=== PATIENT | female | born 1955 | race Caucasian/White ===

== ENCOUNTER 2017-02-05 06:52 | Emergency (ER) | payer SELFPAY ==
[2017-02-05] MEDS ORDERED: ASPIRIN 81 MG TABLET, CHEWABLE PO ONE (07:57)
[2017-02-05] MEDS ORDERED: IPRATROPIUM/ALBUTEROL 0.5-2.5 MG/3 ML AMPUL NEB ONE (07:57)
[2017-02-05] MEDS ORDERED: NORMAL SALINE 1000 ML 1,000 ML IV ONE (07:58)
--- NOTE | 2017-02-05 07:59 | ER Document Report ---
ED General - General Chief Complaint: Cough Stated Complaint: HURT RIGHT SIDE OF CHEST TRAVEL OUTSIDE OF THE [place] IN LAST 30 DAYS: No - HPI Patient complains to provider of: right-sided chest pain Notes: Patient coming in with a chronic cough why sputum production over the last 1-2 weeks right-sided chest pain at the right breast area ongoing for the last 24 hours. Patient states pain is reproducible worse when she takes a breath and also when she moves around. Patient does currently smoke approximately half- pack a day. Patient states no other past medical problems patient has had a hysterectomy no recent travel no recent antibiotics. - Related Data Allergies/Adverse Reactions: codeine Allergy (Verified 02/05/17 07:02) Past Medical History - Social History Smoking Status: Unknown if Ever Smoked Family History: CAD - Father had massive ND at age 55 Patient has suicidal ideation: No Patient has homicidal ideation: No - Past Medical History Cardiac Medical History: Reports: Hx Hypertension Renal/ Medical History: Denies: Hx Peritoneal Dialysis GI Medical History: Reports: Hx Gastroesophageal Reflux Disease Past Surgical History: Reports: Hx Hysterectomy Review of Systems - Review of Systems Constitutional: No symptoms reported EENT: No symptoms reported Cardiovascular: No symptoms reported Respiratory: Cough, Short of breath, Wheezing Gastrointestinal: No symptoms reported Genitourinary: No symptoms reported Female Genitourinary: No symptoms reported Musculoskeletal: No symptoms reported Skin: No symptoms reported Hematologic/Lymphatic: No symptoms reported Neurological/Psychological: No symptoms reported -: Yes All other systems reviewed and negative Physical Exam - Vital signs Vitals: Temp Pulse Resp BP Pulse Ox 97.4 F 107 H 18 114/69 97 02/05/17 06:54 02/05/17 06:54 02/05/17 06:54 02/05/17 06:54 02/05/17 06:54 Interpretation: Normal - General General appearance: Appears well, Alert - HEENT Head: Normocephalic, Atraumatic Eyes: Normal Pupils: PERRL - Respiratory Respiratory status: No respiratory distress Chest status: Nontender Breath sounds: Wheezing Chest palpation: Normal - Cardiovascular Rhythm: Regular Heart sounds: Normal auscultation Murmur: No - Abdominal Inspection: Normal Distension: No distension Bowel sounds: Normal Tenderness: Nontender Organomegaly: No organomegaly - Back Back: Normal, Nontender - Extremities General upper extremity: Normal inspection, Nontender, Normal color, Normal ROM , Normal temperature General lower extremity: Normal inspection, Nontender, Normal color, Normal ROM , Normal temperature, Normal weight bearing. No: Mayur's sign - Neurological Neuro grossly intact: Yes Cognition: Normal Orientation: AAOx4 [place] Coma Scale Eye Opening: Spontaneous [place] Coma Scale Verbal: Oriented [place] Coma Scale Motor: Obeys Commands [place] Coma Scale Total: 15 Speech: Normal Motor strength normal: LUE, RUE, LLE, RLE Sensory: Normal - Psychological Associated symptoms: Normal affect, Normal mood - Skin Skin Temperature: Warm Skin Moisture: Dry Skin Color: Normal Course - Re-evaluation Re-evalutation: 02/05/17 14:37 Chest x-ray showing mass possible postobstructive air space disease. Patient was given a dose of Levaquin. Urinalysis did come back showing urinary tract infection patient was having dysuria. Levaquin will cover urine. CTA was performed of the chest showing Pancoast tumor right upper lobe more likely etiology for patient's chest pain. Patient case was discussed with Dr. Storey agrees patient can follow-up as outpatient as that she was not requiring any oxygen no signs of hypoxia patient agrees follow-up as outpatient. Patient has a appointment scheduled for Wednesday 11:00. - Vital Signs Vital signs: Temp Pulse Resp BP Pulse Ox 98.7 F 107 H 22 H 104/72 96 02/05/17 08:02 02/05/17 06:54 02/05/17 11:01 02/05/17 11:00 02/05/17 11:01 - Laboratory Result Diagrams: 02/05/17 08:10 02/05/17 08:10 Laboratory results interpreted by me: 02/05/17 02/05/17 02/05/17 08:10 08:10 08:10 WBC 13.6 H Hgb 10.7 L Hct 32.8 L MCH 26.2 L RDW 15.0 H Plt Count 495 H Seg Neutrophils % 83.1 H Lymphocytes % 9.7 L Absolute Neutrophils 11.3 H D-Dimer 1.70 H Glucose 117 H Albumin 3.4 L Urine Protein Ur Leukocyte Esterase 02/05/17 09:15 WBC Hgb Hct MCH RDW Plt Count Seg Neutrophils % Lymphocytes % Absolute Neutrophils D-Dimer Glucose Albumin Urine Protein 30 H Ur Leukocyte Esterase MODERATE H Discharge - Discharge Clinical Impression: Lung mass UTI (urinary tract infection) Qualifiers: Urinary tract infection type: acute cystitis Hematuria presence: without hematuria Qualified Code(s): N30.00 - Acute cystitis without hematuria Condition: Good Disposition: HOME, SELF-CARE Instructions: Urinary Tract Infection ([facility]), Trimethoprim-Sulfa ([facility]), Growth or Mass, Pending Workup ([facility]), Oral Narcotic Medication ([facility]) Additional Instructions: Please follow-up Wednesday at [address] Jonathan Storey's office Take antibiotics as prescribed. Take Tylenol and Motrin for pain Use inhaler 2 puffs every 4 hours as needed for shortness of breath. Prescriptions: Hydrocodone Bit/Acetaminophen [Hydrocodon-Acetaminophen 5-325] 1 each PO Q6 #20 tablet Sulfamethoxazole/Trimethoprim [Bactrim 400-80 mg Tablet] 1 each PO BID #20 tablet Forms: Smoking Cessation Education, Return to Work
[2017-02-05 08:21] LABS: ABSOLUTE BASOPHILS # (AUTO) 0.1 10^3/uL (0.0-0.2); ABSOLUTE EOSINOPHILS # (AUTO) 0.1 10^3/uL (0.0-0.6); ABSOLUTE LYMPHOCYTES (AUTO) 1.3 10^3/uL (0.5-4.7); ABSOLUTE MONOCYTES (AUTO) 0.9 10^3/uL (0.1-1.4); ABSOLUTE NEUT (AUTO) 11.3 10^3/uL (1.7-8.2); BASOPHILS % (AUTO) 0.5 % (0-2); EOSINOPHILS % (AUTO) 0.4 % (0-6); HEMATOCRIT 32.8 % (36.0-47.0); HEMOGLOBIN 10.7 g/dL (12.0-15.5); HGB HCT DIFFERENCE -0.7; LYMPHOCYTES % (AUTO) 9.7 % (13-45); MEAN CORPUSCULAR HEMOGLOBIN 26.2 pg (27.0-33.4); MEAN CORPUSCULAR HGB CONC 32.7 g/dL (32.0-36.0); MEAN CORPUSCULAR VOLUME 80 fl (80-97); MONOCYTES % (AUTO) 6.3 % (3-13); SEGMENTED NEUTROPHILS % (AUTO) 83.1 % (42-78); WHITE BLOOD COUNT 13.6 10^3/uL (4.0-10.5)
[2017-02-05 08:40] LABS: ALANINE AMINOTRANSFERASE 19 U/L (9-52); ALBUMIN 3.4 g/dL (3.5-5.0); ALKALINE PHOSPHATASE 107 U/L (38-126); ANION GAP 14 (5-19); ASPARTATE AMINO TRANSFERASE 15 U/L (14-36); BILIRUBIN,DIRECT 0.3 mg/dL (0.0-0.4); BILIRUBIN,TOTAL 0.5 mg/dL (0.2-1.3); BLOOD UREA NITROGEN 12 mg/dL (7-20); CALCIUM 9.2 mg/dL (8.4-10.2); CARBON DIOXIDE 24 mmol/L (22-30); CHLORIDE 100 mmol/L (98-107); CREATINE KINASE 34 U/L (30-135); CREATININE RESULT 0.65 mg/dL (0.52-1.25); GLUCOSE 117 mg/dL (75-110); POTASSIUM 4.3 mmol/L (3.6-5.0); SODIUM 137.7 mmol/L (137-145)
[2017-02-05 08:51] LABS: CREATINE KINASE MB < 0.22 ng/mL (<4.55); TROPONIN I < 0.012 ng/mL
[2017-02-05 09:01] LABS: PROTHROMBIN TIME 14.4 SEC (11.4-15.4)
[2017-02-05 09:40] LABS: APPEARANCE,URINE CLOUDY; BILIRUBIN,URINE NEGATIVE (NEGATIVE); GLUCOSE, URINE NEGATIVE (NEGATIVE); KETONES,URINE NEGATIVE (NEGATIVE); LEUKOCYTE ESTERASE,URINE MODERATE (NEGATIVE); NITRITE,URINE NEGATIVE (NEGATIVE); PROTEIN,URINE 30 mg/dL (NEGATIVE); UROBILINOGEN,URINE NEGATIVE mg/dL (<2.0)
[2017-02-05] MEDS ORDERED: LEVOFLOXACIN 750 MG/D5W RTU 150 ML IV ONE (10:12)
[2017-02-05] MEDS ORDERED: LIDOCAINE 5% (700 MG) TRANSDERMAL ADH..PATCH TP ONE (13:25)
[2017-02-05] MEDS ORDERED: ALBUTEROL SULFATE HFA (90 MCG/PUFF) 8 GM MDI (1 MDI/ER DISP) IH ONE (13:29)
[2017-02-05] MEDS ORDERED: HYDROCODONE/ACETAMINOPHEN 5-325 MG 6 TAB/DSPK PO PRN (13:29)
[2017-02-05 13:46] VITALS: BP 118/81
--- NOTE | 2017-02-05 22:27 | EKG REPORT ---
SEVERITY:- BORDERLINE ECG - SINUS RHYTHM PROBABLE LEFT ATRIAL ABNORMALITY : Confirmed by: Yamile Medina MD 05-Feb-2017 22:26:33
== END 2017-02-05 13:45 | disposition home or self-care (01) ==
LOC: ER 06:52
DX: N30.00 Acute cystitis without hematuria (principal); R91.8 Other nonspecific abnormal finding of lung field; R06.2 Wheezing; R05 Cough; F17.210 Nicotine dependence, cigarettes, uncomplicated; I10 Essential (primary) hypertension; K21.9 Gastro-esophageal reflux disease without esophagitis; Z90.710 Acquired absence of both cervix and uterus
CPT/HCPCS: 93005; 94640; 99284; 96365; 36415; 87040; 87086; 82553; 82550; 85025; 85610; 80053; 81001; 84484; 85379; 71020; 71275; 93010; J1956; J7620

== ENCOUNTER → 2017-02-12 | Outpatient (CLI) | payer OTHER | LOC: RAD 17:43 | PROVIDERS: ATTEND Internal Medicine | DX: C34.2 Malignant neoplasm of middle lobe, bronchus or lung (principal); R91.1 Solitary pulmonary nodule | CPT/HCPCS: 78815; A9552 ==

== ENCOUNTER 2017-02-15 09:46 | Day surgery (SDC) | payer MEDICAID, OTHER ==
[~2017-02-15 09:46] MED LIST: ALBUTEROL SULFATE 0.083% NEB 2.5 MG/3 ML AMPUL NEB PRN; LIDOCAINE 4% INJ/PF (40 MG/ML) 5 ML AMPUL NEB PRN; NORMAL SALINE 1000 ML 1,000 ML IV PRN
[2017-02-15] MEDS ORDERED: SUCCINYLCHOLINE CHLORIDE INJ 200 MG/10 ML VIAL ONE (10:21)
[2017-02-15] MEDS ORDERED: DEXAMETHASONE SOD PHOSPHATE INJ 4 MG/1 ML VIAL ONE (10:21)
[2017-02-15] MEDS ORDERED: ONDANSETRON HCL INJ/PF 4 MG/2 ML SDV ONE (10:21)
[2017-02-15] MEDS ORDERED: LIDOCAINE 2% INJ-PF (20 MG/ML) 10 ML AMPUL ONE (10:21)
[2017-02-15] MEDS ORDERED: VECURONIUM BROMIDE INJ 10 MG VIAL IV ONE (10:21)
[2017-02-15 10:30] LABS: ABSOLUTE BASOPHILS # (AUTO) 0.1 10^3/uL (0.0-0.2); ABSOLUTE EOSINOPHILS # (AUTO) 0.1 10^3/uL (0.0-0.6); ABSOLUTE LYMPHOCYTES (AUTO) 1.7 10^3/uL (0.5-4.7); ABSOLUTE MONOCYTES (AUTO) 1.4 10^3/uL (0.1-1.4); ABSOLUTE NEUT (AUTO) 15.3 10^3/uL (1.7-8.2); BASOPHILS % (AUTO) 0.4 % (0-2); EOSINOPHILS % (AUTO) 0.4 % (0-6); HEMATOCRIT 31.2 % (36.0-47.0); HEMOGLOBIN 10.2 g/dL (12.0-15.5); HGB HCT DIFFERENCE -0.6; LYMPHOCYTES % (AUTO) 9.2 % (13-45); MEAN CORPUSCULAR HEMOGLOBIN 25.9 pg (27.0-33.4); MEAN CORPUSCULAR HGB CONC 32.6 g/dL (32.0-36.0); MEAN CORPUSCULAR VOLUME 79 fl (80-97); MONOCYTES % (AUTO) 7.3 % (3-13); RED BLOOD COUNT 3.93 10^6/uL (3.72-5.28); RED CELL DISTRIBUTION WIDTH 14.9 % (11.5-14.0); SEGMENTED NEUTROPHILS % (AUTO) 82.7 % (42-78); WHITE BLOOD COUNT 18.4 10^3/uL (4.0-10.5)
[2017-02-15] MEDS ORDERED: ATROPINE SULFATE INJ 1 MG/10 ML DISP.SYRIN IV ONE (10:48)
[2017-02-15] MEDS ORDERED: FENTANYL CITRATE INJ/PF 100 MCG/2 ML AMPUL ONE (10:48)
[2017-02-15] MEDS ORDERED: EPHEDRINE SULFATE INJ 50 MG/1 ML AMPULE ONE (10:49)
[2017-02-15] MEDS ORDERED: MIDAZOLAM 2 MG/2 ML INJ ONE (10:49)
[2017-02-15] MEDS ORDERED: PROPOFOL INJ 200 MG/20 ML VIAL IV ONE (10:49)
[2017-02-15 11:06] LABS: PARTIAL THROMBOPLASTIN TIME 32.1 SEC (23.5-35.8)
[2017-02-15 11:21] LABS: ANION GAP 14 (5-19); BLOOD UREA NITROGEN 13 mg/dL (7-20); CALCIUM 9.7 mg/dL (8.4-10.2); CARBON DIOXIDE 27 mmol/L (22-30); CHLORIDE 100 mmol/L (98-107); CREATININE RESULT 0.68 mg/dL (0.52-1.25); GLUCOSE 110 mg/dL (75-110); POTASSIUM 5.5 mmol/L (3.6-5.0); SODIUM 140.8 mmol/L (137-145)
[2017-02-15] MEDS ORDERED: LIDOCAINE 2% INJ (20 MG/ML) 20 ML MDV ONE (11:46)
[2017-02-15 12:02] LABS: PROTHROMBIN TIME 14.2 SEC (11.4-15.4)
[2017-02-15] MEDS ORDERED: ALBUTEROL SULFATE 0.083% NEB 2.5 MG/3 ML AMPUL NEB PRN ×2 (12:02→12:05)
[2017-02-15] MEDS ORDERED: LIDOCAINE 4% INJ/PF (40 MG/ML) 5 ML AMPUL NEB PRN ×2 (12:03→12:05)
[2017-02-15] MEDS ORDERED: ALBUTEROL SULFATE 0.083% NEB 2.5 MG/3 ML AMPUL NEB ONE (13:55)
--- NOTE | 2017-02-15 14:14 | Operative Report ---
Operative Report DATE OF SURGERY: 02/15/17 Operative Report: Patient n.p.o. 12 hours prior to procedure. IV access secured consents were reviewed. Patient was taken to the bronchoscopy suite and was intubated with a #8 ET tube for anesthesiology. Then using a "T size" Olympic bronchoscope her tracheobronchial tree was explored there were no abnormalities of the distal molly there was minimal splaying of the molly there were no abnormalities of the left mainstem bronchus left upper lobe or left lower lobe there was no abnormalities of the right mainstem bronchus that was submucosal swelling in the right upper lobe right middle lobe and the right lower lobe as well as the distal part of the right bronchus intermedius. Lavage was taken of the right upper lobe as well as the right middle lobe transbronchial biopsies were taken from the right upper lobe and right middle lobe Chavez needle biopsy were taken from the right upper lobe and right middle lobe. Patient tolerated procedure well postprocedure SaO2 was 95% and a postprocedure chest x-ray did not demonstrate pneumothorax. Tissue and lavage fluid have been sent sent to the labs for appropriate cultures and studies PREOPERATIVE DIAGNOSIS: RUL mass POSTOPERATIVE DIAGNOSIS: same OPERATION: fiberoptic bronchoscopy with lavage;transbronchial and Chavez needle biopies RUL and RML SURGEON: ROMINA MARTINEZ ANESTHESIA: GA TISSUE REMOVED OR ALTERED: tissue transbronchial biopsies Chavez needle biopsies COMPLICATIONS: none ESTIMATED BLOOD LOSS: 5 ml
[2017-02-15] MEDS ORDERED: AMPICILLIN SOD/SULBACTAM 1.5 GM VIAL ONE (14:26)
[2017-02-15] MEDS ORDERED: PROMETHAZINE HCL INJ 25 MG/1 ML VIAL IV PRN ×2 (14:35)
[2017-02-15] MEDS ORDERED: FENTANYL CITRATE INJ/PF 100 MCG/2 ML AMPUL IV PRN ×3 (14:35)
[2017-02-15] MEDS ORDERED: DIPHENHYDRAMINE HCL 50 MG/ML VIAL IV PRN (14:35)
[2017-02-15] MEDS ORDERED: MORPHINE SULFATE 10 MG/ML INJ IV PRN (14:35)
[2017-02-15] MEDS ORDERED: MEPERIDINE HCL/PF INJ 25 MG/1 ML DISP.SYRIN IV PRN (14:35)
[2017-02-15] MEDS ORDERED: ONDANSETRON HCL INJ/PF 4 MG/2 ML SDV IV PRN (14:35)
[2017-02-15] MEDS ORDERED: AMPICILLIN SODIUM/SULBACTAM NA 3 GM in NORMAL SALINE 100 ML IV ONE (16:00)
[2017-02-15 16:51] VITALS: BP 97/62
[2017-02-15 17:07] LABS: FLUID TYPE BRONCHIAL WASH
[2017-02-15 17:08] LABS: FLUID APPEARANCE CLOUDY; FLUID RBC AVERAGE 124.5; FLUID RBC SIDE 1 123; FLUID RBC SIDE 2 126
[2017-02-15 17:09] LABS: FLUID RBC DILUENT USED SALINE; FLUID RBC DILUTION FACTOR 10; TOTAL RBC SQUARES COUNTED FLD 25
== END 2017-02-15 16:50 | disposition home or self-care (01) ==
LOC: OROUT 09:46
PROVIDERS: ATTEND Internal Medicine Pulmonary Disease
PROC: 0B948ZX Drainage of Right Upper Lobe Bronchus, Via Natural or Artificial Opening Endoscopic, Diagnostic (ICD-10-PCS; 2017-02-15)
PROC: 0BBD8ZX Excision of Right Middle Lung Lobe, Via Natural or Artificial Opening Endoscopic, Diagnostic (ICD-10-PCS; principal; 2017-02-15 12:00)
PROC: 0BBC8ZX Excision of Right Upper Lung Lobe, Via Natural or Artificial Opening Endoscopic, Diagnostic (ICD-10-PCS; 2017-02-15 12:00)
PROC: 0B958ZX Drainage of Right Middle Lobe Bronchus, Via Natural or Artificial Opening Endoscopic, Diagnostic (ICD-10-PCS; 2017-02-15 12:00)
DX: C34.11 Malignant neoplasm of upper lobe, right bronchus or lung (principal); I10 Essential (primary) hypertension; I20.9 Angina pectoris, unspecified; F17.210 Nicotine dependence, cigarettes, uncomplicated; Z88.5 Allergy status to narcotic agent; Z79.51 Long term (current) use of inhaled steroids; Z87.440 Personal history of urinary (tract) infections
CPT/HCPCS: 31628; 31629; 31624; 36415; 87070 ×2; 87205; 87206; 87116; 87101; 85025; 85610; 85730; 89050; 80048; 87015; 87486; 88162; 88342 ×2; 88341 ×2; 88305 ×2; 88313 ×2; 71010; J2250; J0461; J1100; J3010; J0295 ×2; J3490 ×3; J0330; J2405; J2704; 520

== ENCOUNTER 2017-03-01 09:48 | Day surgery (SDC) | payer OTHER ==
[~2017-03-01 09:48] MED LIST changes: -ALBUTEROL SULFATE 0.083% NEB 2.5 MG/3 ML AMPUL NEB PRN; -LIDOCAINE 4% INJ/PF (40 MG/ML) 5 ML AMPUL NEB PRN; -NORMAL SALINE 1000 ML 1,000 ML IV PRN; +PROPOFOL INJ 200 MG/20 ML VIAL IV ONE
--- NOTE | 2017-03-01 11:26 | Operative Report ---
Operative Report DATE OF SURGERY: 03/01/17 Operative Report: The risks, benefits and alternatives of the procedure including risks of bleeding, perforation requiring surgery are explained to the patient detail and informed consent is obtained. Patient is taken back to the endoscopy suite and placed in a left, lateral decubital position. Timeout is called. Propofol medication is administered. A rectal examination was done which did not reveal any masses, tears or fissures. An Olympus video scope was inserted into the patient's rectum. The scope was then gradually advanced all the way to the cecum. The cecum was identified by the usual anatomical landmarks including the ileocecal valve as well as the appendiceal office. Photodocumentation was obtained. The scope was then sequentially pulled back via the various segments of the colon including the ascending colon, hepatic flexure, transverse colon, splenic flexure, descending colon and finally into the rectosigmoid portions of the colon. Retroflexion maneuvers performed. PREOPERATIVE DIAGNOSIS: Abnormal PET scan POSTOPERATIVE DIAGNOSIS: Mild right-sided inflammation status post biopsy OPERATION: Colonoscopy with biopsy SURGEON: CARMEN STROUD ANESTHESIA: LMAC TISSUE REMOVED OR ALTERED: Right-sided mucosal specimens obtained rule out collagenous, lymphocytic, microscopic colitis. COMPLICATIONS: None. ESTIMATED BLOOD LOSS: none. INTRAOPERATIVE FINDINGS: There appears to be findings in the right side of the colon that is consistent with findings on the PET scan report. Await on biopsies. PROCEDURE: Patient tolerated procedure well. No immediate postprocedure complications are noted. Patient discharged in good condition. Discharge date 03/01/2017. Discharge diet: Regular. Discharge activity: Regular. We'll await on biopsies 2-3 week follow-up to discuss findings Patient is instructed to call the office or proceed to the emergency room should there be any further problems or questions
[2017-03-01 11:33] VITALS: BP 119/88
== END 2017-03-01 11:39 | disposition home or self-care (01) ==
LOC: END 09:48
PROVIDERS: ATTEND Internal Medicine Gastroenterology
PROC: 0DBF8ZX Excision of Right Large Intestine, Via Natural or Artificial Opening Endoscopic, Diagnostic (ICD-10-PCS; principal; 2017-03-01 12:30)
DX: K52.9 Noninfective gastroenteritis and colitis, unspecified (principal); K64.8 Other hemorrhoids; R94.8 Abnormal results of function studies of other organs and systems; K21.9 Gastro-esophageal reflux disease without esophagitis; I10 Essential (primary) hypertension; F17.210 Nicotine dependence, cigarettes, uncomplicated; M19.90 Unspecified osteoarthritis, unspecified site; J45.909 Unspecified asthma, uncomplicated; Z88.5 Allergy status to narcotic agent; Z85.118 Personal history of other malignant neoplasm of bronchus and lung
CPT/HCPCS: 45380; 88305 ×2; J2704; 810

== ENCOUNTER → 2017-03-01 | Outpatient (CLI) | payer OTHER | LOC: RAD 15:53 | PROVIDERS: ATTEND Specialist | DX: C34.10 Malignant neoplasm of upper lobe, unspecified bronchus or lung (principal) | CPT/HCPCS: 70553; A9577 ==

== ENCOUNTER 2017-03-04 09:08 | Outpatient (CLI) | payer OTHER ==
[~2017-03-04 09:08] MED LIST changes: +CARBOPLATIN IV PRN; +DIPHENHYDRAMINE HCL 50 MG/ML VIAL INJ PRN; +FAMOTIDINE INJ/PF 20 MG/2 ML SDV IV PRN; +NORMAL SALINE IV PRN; +ONDANSETRON HCL/PF 16 MG, DEXAMETHASONE SOD PHOSPHATE 20 MG in NORMAL SALINE 50 ML IV PRN; +PACLITAXEL SEMI SYNTHETIC IV PRN; -PROPOFOL INJ 200 MG/20 ML VIAL IV ONE
[2017-03-04] MEDS ORDERED: NORMAL SALINE 250 ML IV PRN (09:12)
[2017-03-04] MEDS ORDERED: DIPHENHYDRAMINE HCL 50 MG/ML VIAL IV PRN (09:13)
[2017-03-04 09:44] VITALS: BP 146/58
== END 2017-03-04 12:19 | disposition home or self-care (01) ==
LOC: II 09:08 → 5TH 09:10 → II 12:19
PROVIDERS: ATTEND Specialist
PROC: 3E03305 Introduction of Other Antineoplastic into Peripheral Vein, Percutaneous Approach (ICD-10-PCS; principal; 2017-03-04)
PROC: 3E033GC Introduction of Other Therapeutic Substance into Peripheral Vein, Percutaneous Approach (ICD-10-PCS; 2017-03-04)
DX: Z51.11 Encounter for antineoplastic chemotherapy (principal); C34.10 Malignant neoplasm of upper lobe, unspecified bronchus or lung; R60.9 Edema, unspecified
CPT/HCPCS: 96413; 96367; 96375; 96417; J1200; J9045; J2405; J7050; J9267; S0028; J1100; 96415

== ENCOUNTER 2017-03-10 13:58 | Inpatient (IN) | payer SELFPAY ==
[2017-03-10] MEDS ORDERED: IPRATROPIUM/ALBUTEROL 0.5-2.5 MG/3 ML AMPUL NEB ONE ×2 (14:27→14:33)
[2017-03-10] MEDS ORDERED: PREDNISONE 20 MG TABLET PO ONE (14:27)
--- NOTE | 2017-03-10 14:30 | ER Document Report ---
ED Medical Screen (RME) - General Chief Complaint: Breathing Difficulty Stated Complaint: DIFFICULTY BREATHING Time Seen by Provider: 03/10/17 14:27 Mode of Arrival: Ambulatory Information source: Patient Notes: Patient presents with shortness of breath this morning worsen her baseline. Patient says she was seen in emergency department recently and diagnosed with lung cancer was on this short of breath at that time. She reports she seen Dr. Storey status post radiation treatment on the right side for what sounds like an obstructing bronchial lesion is are had one round of chemotherapy. Physical exam Cachectic appearing female mildly tachypnea With talking Chest diminished breath sounds in right base not tender Heart regular rate and rhythm TRAVEL OUTSIDE OF THE [place] IN LAST 30 DAYS: No - Related Data Allergies/Adverse Reactions: codeine Allergy (Mild, Verified 03/01/17 10:06) Change in behavior latex Allergy (Mild, Verified 03/01/17 10:06) Eczematous dermatitis Past Medical History - Past Medical History Cardiac Medical History: Denies: Hx Coronary Artery Disease, Hx Heart Attack, Hx Hypertension Pulmonary Medical History: Denies: Hx Asthma, Hx Bronchitis, Hx COPD - TROUBLE BREATHING/FLUID IN LUNGS , Hx Pneumonia Neurological Medical History: Denies: Hx Cerebrovascular Accident, Hx Seizures Renal/ Medical History: Denies: Hx Peritoneal Dialysis GI Medical History: Reports: Hx Gastroesophageal Reflux Disease Musculoskeltal Medical History: Denies Hx Arthritis Past Surgical History: Reports: Hx Hysterectomy - Immunizations Hx Diphtheria, Pertussis, Tetanus Vaccination: Yes
[2017-03-10 14:59] LABS: HEMATOCRIT 30.3 % (36.0-47.0); HEMOGLOBIN 9.5 g/dL (12.0-15.5); HGB HCT DIFFERENCE -1.8; MEAN CORPUSCULAR HEMOGLOBIN 25.8 pg (27.0-33.4); MEAN CORPUSCULAR HGB CONC 31.2 g/dL (32.0-36.0); RED BLOOD COUNT 3.67 10^6/uL (3.72-5.28); RED CELL DISTRIBUTION WIDTH 18.6 % (11.5-14.0); WHITE BLOOD COUNT 11.5 10^3/uL (4.0-10.5)
[2017-03-10 15:14] LABS: ALANINE AMINOTRANSFERASE 39 U/L (9-52); ALKALINE PHOSPHATASE 113 U/L (38-126); ANION GAP 11 (5-19); ASPARTATE AMINO TRANSFERASE 33 U/L (14-36); BILIRUBIN,DIRECT 0.4 mg/dL (0.0-0.4); BILIRUBIN,TOTAL 0.8 mg/dL (0.2-1.3); BLOOD UREA NITROGEN 11 mg/dL (7-20); CALCIUM 8.7 mg/dL (8.4-10.2); CARBON DIOXIDE 30 mmol/L (22-30); CHLORIDE 94 mmol/L (98-107); CREATININE RESULT 0.36 mg/dL (0.52-1.25); GLUCOSE 154 mg/dL (75-110); POTASSIUM 4.4 mmol/L (3.6-5.0); SODIUM 134.5 mmol/L (137-145); TOTAL PROTEIN 6.1 g/dL (6.3-8.2)
[2017-03-10 15:20] LABS: MEAN CORPUSCULAR VOLUME 83 fl (80-97)
[2017-03-10 15:25] LABS: ANISOCYTOSIS 2+; BASOPHILS % (MANUAL) 0 % (0-2); EOSINOPHILS % (MANUAL) 1 % (0-6); HYPOCHROMASIA SLIGHT; LYMPHOCYTES % (MANUAL) 5 % (13-45); POLYCHROMASIA SLIGHT; TOTAL CELLS COUNTED 100
--- NOTE | 2017-03-10 15:31 | ER Document Report ---
ED Respiratory Problem - General Chief Complaint: Breathing Difficulty Stated Complaint: DIFFICULTY BREATHING Time Seen by Provider: 03/10/17 14:27 Mode of Arrival: Ambulatory Information source: Patient Notes: Patient is an unfortunate 61-year-old female who presents today with shortness of breath exacerbating around 1 PM. Patient states she was diagnosed around a month ago with lung cancer. She states there was a biopsy showing a non-small cell lung cancer. Patient started her first chemotherapy dose 1 week ago. She has also started radiation with her second chemotherapy dose scheduled for tomorrow. Patient denies any pain in her chest, fevers, or vomiting. Baseline nonproductive cough. She has had some edema to bilateral legs for the last 4 weeks. TRAVEL OUTSIDE OF THE [place] IN LAST 30 DAYS: No - HPI Patient complains to provider of: Short of breath Onset: Other - See above Duration: Continuous Initiating Event: Other - Lung cancer Quality of pain: No pain Severity: Moderate Pain Level: Denies Short of Breath: Mild Cough: Nonproductive Sputum amount: None Associated symptoms: Other - See above Similar symptoms previously: Yes Recently seen / treated by doctor: Yes - Related Data Allergies/Adverse Reactions: codeine Allergy (Mild, Verified 03/01/17 10:06) Change in behavior latex Allergy (Mild, Verified 03/01/17 10:06) Eczematous dermatitis Past Medical History - General Information source: Patient - Social History Smoking Status: Former Smoker Cigarette use (# per day): No Chew tobacco use (# tins/day): No Smoking Education Provided: No Frequency of alcohol use: None Family History: CAD - Father had massive CO at age 55 Patient has suicidal ideation: No Patient has homicidal ideation: No - Past Medical History Cardiac Medical History: Denies: Hx Coronary Artery Disease, Hx Heart Attack, Hx Hypertension Pulmonary Medical History: Denies: Hx Asthma, Hx Bronchitis, Hx COPD - TROUBLE BREATHING/FLUID IN LUNGS , Hx Pneumonia Neurological Medical History: Denies: Hx Cerebrovascular Accident, Hx Seizures Renal/ Medical History: Denies: Hx Peritoneal Dialysis GI Medical History: Reports: Hx Gastroesophageal Reflux Disease Musculoskeltal Medical History: Denies Hx Arthritis Past Surgical History: Reports: Hx Hysterectomy - Immunizations Hx Diphtheria, Pertussis, Tetanus Vaccination: Yes Review of Systems - Review of Systems Constitutional: denies: Fever EENT: denies: Eye discharge, Nose discharge Cardiovascular: denies: Chest pain, Palpitations Respiratory: Cough, Short of breath. denies: Hurts to breathe, Hemoptysis Gastrointestinal: denies: Vomiting Genitourinary: denies: Dysuria Musculoskeletal: denies: Leg swelling Skin: Other - no hives. denies: Rash Neurological/Psychological: Other - no slurred speech -: Yes All other systems reviewed and negative Physical Exam - Vital signs Notes: Reviewed vital signs and nursing note as charted by RN. CONSTITUTIONAL: Alert and oriented and responds appropriately to questions. Well -appearing; well-nourished HEAD: Normocephalic; atraumatic ENT: Normal nose; no rhinorrhea; moist mucous membranes; pharynx without lesions noted NECK: Supple; non-tender CARD: Tachycardic; no murmurs, no clicks, no rubs, no gallops; symmetric distal pulses RESP: Mild tachypnea. Patient has decreased breath sounds to the right lung field. Left lung is clear with no wheezing, rhonchi, or rales. ABD/GI: Normal bowel sounds; non-distended; soft, non-tender BACK: The back appears normal and is non-tender to palpation EXT: Normal ROM in all joints; non-tender to palpation; no cyanosis, no effusions, edema to bilateral shins, 2+. SKIN: Normal color for age and race; warm; dry; good turgor; capillary refill < 2 seconds; no acute lesions noted NEURO: Moves all extremities equally; Motor and sensory function intact PSYCH: The patient's mood and manner are appropriate. Grooming and personal hygiene are appropriate. Course - Re-evaluation Re-evalutation: Given the above history and physical examination we will order an x-ray of the chest, cardiac panel, EKG, and reassess the patient. Concern about possible effusion, pneumonia, pulmonary embolism, or ACS. I believe dissection to be extraordinarily unlikely. 03/10/17 15:36 X-ray of the chest, pulmonary interpretation showing what appears to be a complete white out of the right lung most likely secondary to pleural effusion given the cancer history. This does look worse than her x-ray of her chest one month ago. Patient is speaking in complete sentences, nasal cannula in place, and slightly tachycardic. I have called the oncologist Dr. Storey. I believe the patient will require further evaluation and admission. I believe, given the complete white out of the right lung, pulmonary embolism to be less likely. I've discussed this with the hospitalist. Heart rate 118, sinus tachycardia, normal axis, no obvious ST elevation or depression. Flattening T waves diffusely. Old EKG from 02/05/2017 does not show diffuse T-wave flattening. 03/10/17 15:40 Patient is currently satting 93% on 3 L. Given the edema and what I believe to be a pleural effusion, I will withhold fluids at this time. I believe BiPAP may possibly be beneficial. Patient will be admitted most likely to the [facility]. - Laboratory Result Diagrams: 03/10/17 14:35 03/10/17 14:35 Laboratory results interpreted by me: 03/10/17 03/10/17 14:35 14:35 WBC 11.5 H RBC 3.67 L Hgb 9.5 L Hct 30.3 L MCH 25.8 L MCHC 31.2 L RDW 18.6 H Seg Neuts % (Manual) 90 H Lymphocytes % (Manual) 5 L Abs Neuts (Manual) 10.4 H Sodium 134.5 L Chloride 94 L Creatinine 0.36 L Glucose 154 H Total Protein 6.1 L Albumin 3.0 L Critical Care Note - Critical Care Note Total time excluding time spent on procedures (mins): 35 Discharge - Discharge Clinical Impression: Shortness of breath, Pleural effusion Condition: Serious Admitting Provider: Hospitalist Unit Admitted: [facility]
[2017-03-10] MEDS ORDERED: FUROSEMIDE INJ/PF 20 MG/2 ML SDV IV ONE (15:45)
[2017-03-10] MEDS ORDERED: ACETAMINOPHEN 325 MG TABLET PO PRN (16:39)
[2017-03-10] MEDS ORDERED: OXYCODONE-ACETAMINOPHEN 5-325 MG TABLET PO PRN (16:39)
[2017-03-10] MEDS ORDERED: LORAZEPAM 0.5 MG TABLET PO PRN (16:49)
[2017-03-10] MEDS ORDERED: DEXAMETHASONE 4 MG TABLET PO PRN (16:49)
[2017-03-10] MEDS ORDERED: FUROSEMIDE INJ/PF 40 MG/4 ML SDV IV ONE (16:57)
--- NOTE | 2017-03-10 17:21 | PDOC H&P ---
History of Present Illness Admission Date/PCP: 03/10/17 16:26 History of Present Illness: IRIS TAYLOR is a 61 year old female with a past medical history significant for non-small cell lung cancer diagnosed 1 month ago status post chemotherapy last week, XRT due to be completed today, recently diagnosed UTI and the rash who presents to the service with acute shortness of breath. Patient had been in her usual state of health until around 1:00 this afternoon when she developed shortness of breath. Her primary oncologist is Dr. Storey. Which came into the emergency room she was found to be short of breath with a low O2 sat. Liters of oxygen by nasal cannula which brought her sats up to 93% . She had a chest x-ray done in the emergency room which showed a liliane out right lung with pleural effusion. Patient at this point has not been started on any antibiotics or Lasix. Reportedly she began having lower extremity swelling about 2 weeks ago. This was just prior to starting her chemotherapy. She is on Lasix at home 20 mg by mouth daily. The patient is a known smoker and continues to smoke. She is now down to 2 cigarettes a day. White count in the ED was noted to be 11. No Lasix has been giving as of yet. No steroids have been given. Unfortunately, by the time I came to see the patient she was placed on bilevel Pap. She tells me that she feels much better having this on. Past Medical History Past Medical History: Diagnosed with non-small cell lung cancer one month ago. At this time MRI of the brain was done and was negative for any metastasis. Cardiac Medical History: Denies: Congestive Heart Failure, Coronary Artery Disease, Myocardial Infarction, Hypertension Pulmonary Medical History: Denies: Asthma, Bronchitis, Chronic Obstructive Pulmonary Disease (COPD) - TROUBLE BREATHING/FLUID IN LUNGS, Pneumonia Neurological Medical History: Denies: Seizures GI Medical History: Reports: Gastroesophageal Reflux Disease Musculoskeltal Medical History: Denies: Arthritis Hematology: Denies: Anemia Past Surgical History Past Surgical History: Reports: Hysterectomy, Tonsillectomy Social History Smoking Status: Smoker,Current Status Unk Frequency of Alcohol Use: None Hx Recreational Drug Use: Yes Past Social History Note: Patient began smoking at the age of 17. She smoked upwards of one pack per day and is now down to 2 cigarettes per day. Family History Family History: CAD - Father had massive MS at age 55, DM, Malignancy Parental Family History Reviewed: Yes Children Family History Reviewed: Yes Sibling(s) Family History Reviewed.: Yes Medication/Allergy Home Medications: Albuterol Sulfate [Proair HFA] 2 puff IH Q4HP PRN 03/10/17 Ciprofloxacin HCl [Cipro 500 mg Tablet] 500 mg PO Q12 03/10/17 Cpd-Lido/Antacid/Diphen 10 ml PO ACHS 03/10/17 Dexamethasone [Decadron 4 mg Tablet] 20 mg PO BIDP PRN 03/10/17 Fluconazole [Diflucan 100 mg Tablet] 100 mg PO DAILY 03/10/17 Furosemide [Lasix] 20 mg PO DAILY 03/10/17 Hydrocodone/Acetaminophen [[place] 5-325 mg Tablet] 1 tab PO Q4HP PRN 03/10/17 Hydrocodone/Chlorphen P-Stirex [Hydrocodone-Chlorphen ER Susp] 5 ml PO BID 03/10 Ipratropium/Albuterol Sulfate [Duoneb 3 ml Ampul] 1 vial NEB RTQ6HP PRN Lorazepam [Ativan 0.5 mg Tablet] 0.5 mg PO Q6HP PRN 03/10/17 Megestrol Acetate 20 mg PO Q12 03/10/17 Sertraline HCl [Zoloft 50 mg Tablet] 50 mg PO DAILY 03/10/17 Allergies/Adverse Reactions: codeine Allergy (Mild, Verified 03/01/17 10:06) Change in behavior latex Allergy (Mild, Verified 03/01/17 10:06) Eczematous dermatitis Review of Systems Review of Systems: Review of systems positive for that already listed in the history of present illness. In addition to this patient has some issues with cold intolerance. She denies nausea, and vomiting. She admits to constipation and is on hydrocodone at home. She denies diarrhea, fevers, chills, chest pain, decreased appetite, abdominal pain, generalized arthritic type pain. She has lost weight and although she did have some decreased appetite she is on Megace which has restored it. Her last colonoscopy was a month ago. She denies any bright red blood per rectum. Physical Exam Vital Signs: Temp Pulse Resp BP Pulse Ox 26 H 174/91 H 93 03/10/17 16:02 03/10/17 16:02 03/10/17 16:02 Physical exam: Gen.: This is a well-developed underweight chronically ill-appearing white female resting in bed on bilevel Pap appearing quite nervous. HEENT: Normocephalic atraumatic. Trachea is midline. Sclerae are not icteric. No lymphadenopathy. Heart: Tachycardic. No murmurs rubs or gallops. Lungs: Coarse breath sounds bilaterally right much worse than the left. She is currently on bilevel Pap and breathing easily. Although she appears a bit She is able to speak in full sentences. Abdomen: Soft nontender nondistended. Active bowel sounds. Extremities: No clubbing cyanosis. 2-3+ pitting edema extending from the feet following up through the knees bilaterally. Lower extremity pulses cannot easily be palpated due to the edema. 2+ radial pulses bilaterally. Strength in the upper extremities is 5 out of 5. Neuro: Awake alert oriented. Cranial nerves II through XII are specifically intact. Patient is able to supply her own medical history. Pupils reactive. Psych: Patient seems nervous. Results Impressions: Chest X-Ray 03/10/17 14:28 IMPRESSION: Large right pleural effusion with what has previously been characterized as an upper lobe mass. Assessment & Plan - Diagnosis (1) Acute respiratory failure with hypoxemia Plan: Likely multifactorial due to underlying COPD and lung cancer. However this also consider the patient's pleural effusion and the idea that there could be a pneumonia underneath this. In addition to this we must also consider the possibility for underlying heart failure. Please see management below. Continue nebulizer treatments with Xopenex since she has an elevated heart rate. Continue bilevel Pap on the floor. Consult pulmonology. Continue dexamethasone from home. Obtain CT scan of the chest. We'll also rule out PE given her underlying malignancy. (2) Pneumonia Qualifiers: Laterality: left Lung location: lower lobe of lung Plan: Patient may have a pneumonia associated with this pleural effusion. Given her underlying cancer could be an obstructive pneumonia. Her white blood cell count is only mildly elevated and could be accounted for by underlying UTI. Right now her respiratory status is so poor that we might have to consider thoracentesis in this case. In which case would be good to send any sort of fluid for culture. For now we will try to obtain sputum culture. Obtain CT chest (3) UTI (urinary tract infection) Qualifiers: Urinary tract infection type: acute cystitis Plan: This was diagnosed as an outpatient yesterday. No micro-organism available. She is on outpatient Cipro will continue here in house. (5) Hypertensive urgency Plan: Patient does not usually have issues with hypertension. I suspect that her blood pressures are in the 170s because of her comorbid conditions. We will have when necessary medications available. (6) Edema Plan: Patient has extensive lower extremity edema we'll check a BNP. Check a cardiac echo. (7) Malnutrition Plan: Continue Megace (8) Pleural effusion Plan: Consider thoracentesis if Lasix does not help. Will give a stat dose of 40 mg IV now. Continue bilevel Pap. (9) Tobacco abuse Plan: The patient is down to 2 cigarettes per day. Complete cessation is advised. - Time Time Spent: 50 to 70 Minutes Anticipated discharge: Home - Inpatient Certification Medical Necessity: Need Close Monitoring Due to Risk of Patient Decompensation
[2017-03-10] MEDS: NORMAL SALINE 1000 ML 1,000 ML IV PRN (18:41)
[2017-03-10] MEDS: LEVALBUTEROL HCL NEB 0.63 MG/3 ML AMPUL NEB SCH (20:43)
[2017-03-10] MEDS ORDERED: ANTACID PO SCH (22:00)
[2017-03-10] MEDS ORDERED: [UNRECOGNIZED DRUG - OTHER] PO SCH (22:00)
[2017-03-10] MEDS ORDERED: MEGESTROL ACETATE 20 MG PO SCH (22:00)
[2017-03-10] MEDS ORDERED: DIPHEN PO SCH (22:00)
[2017-03-10] MEDS: MEGESTROL ACETATE 20 MG TABLET PO SCH (22:21)
--- NOTE | 2017-03-10 22:33 | CONSULTATION REPORT E ---
Consultation Report NAME: IRIS TAYLOR : 1955 AGE: 61Y DATE: 03/10/2017 329 A TO: MILI GREENE M.D. FROM: BARRINGTON SALAZAR M.D. Requesting Physician HISTORY OF PRESENT ILLNESS: The patient is a 61-year-old female with a past medical history of lung mass right upper lobe reportedly diagnosed with non-small cell cancer but not able to get the pathology report that treated with radiation 9 cycles; last cycle was yesterday and had 1 cycle of chemotherapy. The patient was feeling very short of breath today, and the tenth cycle of radiation treatment was canceled, and the patient was brought to the Emergency Room and was admitted. I was called because the patient had CT scan of the chest showing pulmonary emboli involving the segmental left lower lobe and also moderate amount of pleural effusion right side and the lung mass in right upper lobe and moderate pericardial effusion. The patient claims that she is breathing a little bit better, denies any fever, chills, denies any cough, sputum production. No hemoptysis. Tonight, she has some blood-tinged nasal secretions which may be due to the full face mask being used by the patient. PAST MEDICAL HISTORY: 1. Diagnosed with non-small cell cancer a month ago 01/2017. MRI of the brain was negative. Had 9 cycles of radiation treatment and 1 cycle of chemotherapy. No pathology report seen. Showing a malignancy from the bronchoscopy and from the colonoscopy. 2. Cardiac history: Denies any heart failure or coronary artery disease, myocardial infarction. 3. Patient has a history of COPD and pneumonia. 4. No history of seizures. PAST SURGICAL HISTORY: 1. Hysterectomy. 2. Tonsillectomy. SOCIAL HISTORY: Patient smokes cigarettes for unknown duration. Denies any alcohol abuse. Patient admitted recreational drug use. Began smoking when she was 17 years old, about 1 pack per day and down to 2 cigarettes a day in the last few weeks. FAMILY HISTORY: Father at 55 diabetes and malignancy. MEDICATIONS: 1. Albuterol. 2. Cipro. 3. Dexamethasone. 4. Fluconazole. 5. Lasix. 6. Hydrocodone. 7. Ipratropium. 8. Lorazepam. 9. Megestrol. 10. Sertraline. ALLERGIES: CODEINE. REVIEW OF SYSTEMS: CONSTITUTIONAL: No fever, chills. EYES: No jaundice or pallor. EARS, NOSE AND THROAT: No ear drainage. No sore throat. Has some blood-tinged nasal discharge just tonight. PULMONARY: Denies any respiration. Complains about increased shortness of breath. Occasional sputum production. No hemoptysis. Some chest tightness on the right. CARDIOVASCULAR: No history of MN or angina. Right-sided chest tightness. GASTROINTESTINAL: No nausea, vomiting, diarrhea. GENITOURINARY: No dysuria, hematuria or stone disease. EXTREMITIES: No joint swelling, no cellulitis. PHYSICAL EXAMINATION: GENERAL: The patient is awake, alert, coherent, oriented x3. VITAL SIGNS: Blood pressure of 116/78. Heart rate of 126. Temperature of 97.5. Saturation is 96% on BiPAP and FiO2 titrated to give saturation 91-95%. EYES: No conjunctival pallor. EARS, NOSE, MOUTH AND THROAT: No ear drainage noted. Some nasal discharge blood-tinged. CHEST/LUNGS: No wheezing, no rhonchi, no coarse crackles. Decreased breath sounds involving the right lung. CARDIAC: S1, S2 is distinct, tachycardic, regular rhythm. ABDOMEN: Flabby. Positive bowel sounds. Soft, nondistended. EXTREMITIES: No joint swelling or cellulitis. LABORATORY: CBC done today showed hemoglobin 10.5, hematocrit 30.3, WBC 13.5, platelet count 274. Chemistry showed sodium 134, potassium 4.4, chloride 94, CO2 30, BUN 11, creatinine 0.39, calcium 8.7. Total protein 6.1, albumin 3. SGPT, SGOT, and alkaline phosphatase are normal. CT scan done today showed massive opacity involving the right lung with moderate pleural effusion, atelectatic right upper lobe. No mass in the right upper lobe. No apparent pneumonic infiltrate involving the left lung. ASSESSMENT: 1. Lung mass -most likely malignant with malignant pleural effusion right side moderate in amount. Patient is status post radiation treatment 9 cycles and status post 1 cycle of chemotherapy. For the pleural effusion, the patient may need Pleurx catheter placement and education on how to use the Pleurx and prepare patient for discharge somewhere in the near future. Patient may be able to use the Pleurx for quite a while, considering the malignant pleural effusion which is at high risk for recurrence and high risk for re-accumulation. We will consider holding the heparin drip 4 to 6 hours prior to the Pleurx catheter placement. If Pleurx catheter is not possible, we may consider pigtail catheter placement. We refer the patient to Interventional Radiology. 2. We will start the patient on heparin drip low dose, no loading dose, at 1000 units per hour to prevent the pulmonary emboli from becoming large and massive. 3. Medical Oncology consult. 4. Cardiology consult for the moderate pericardial effusion. DICTATING PHYSICIAN: MILI GREENE MD,LEIGH,MPH [id number] PHY#: [id number] ID: [id number] JOB#: [id number] ACCT: [id number] cc:MILI GREENE M.D. > MTDD
[2017-03-10 23:02] LABS: HEMATOCRIT 28.8 % (36.0-47.0); HEMOGLOBIN 9.3 g/dL (12.0-15.5); HGB HCT DIFFERENCE -0.9; MEAN CORPUSCULAR HEMOGLOBIN 25.7 pg (27.0-33.4); MEAN CORPUSCULAR HGB CONC 32.1 g/dL (32.0-36.0); MEAN CORPUSCULAR VOLUME 80 fl (80-97); WHITE BLOOD COUNT 11.1 10^3/uL (4.0-10.5)
[2017-03-10 23:10] LABS: PROTHROMBIN TIME 16.2 SEC (11.4-15.4)
[2017-03-10 23:11] LABS: PARTIAL THROMBOPLASTIN TIME 34.7 SEC (23.5-35.8)
[2017-03-10] MEDS: HEPARIN SODIUM,PORCINE/D5W 25,000 UNIT/250 ML RTUINJ IV PRN (23:26)
--- NOTE | 2017-03-10 23:36 | EKG REPORT ---
SEVERITY:- ABNORMAL ECG - SINUS TACHYCARDIA NONSPECIFIC T ABNORMALITIES, INFERIOR LEADS : Confirmed by: Maria Esther Orantes 10-Mar-2017 23:35:52
[2017-03-11] MEDS: LEVALBUTEROL HCL NEB 0.63 MG/3 ML AMPUL NEB SCH ×7 (00:15→23:55)
[2017-03-11 06:36] LABS: APPEARANCE,URINE SLIGHTLY-CLOUDY; BILIRUBIN,URINE NEGATIVE (NEGATIVE); GLUCOSE, URINE 50 mg/dL (NEGATIVE); KETONES,URINE NEGATIVE (NEGATIVE); LEUKOCYTE ESTERASE,URINE TRACE (NEGATIVE); NITRITE,URINE NEGATIVE (NEGATIVE); PROTEIN,URINE NEGATIVE (NEGATIVE); URINE SPECIFIC GRAVITY 1.032
[2017-03-11 07:19] LABS: HEMOGLOBIN 8.7 g/dL (12.0-15.5); HGB HCT DIFFERENCE -0.9; MEAN CORPUSCULAR HEMOGLOBIN 25.7 pg (27.0-33.4); MEAN CORPUSCULAR HGB CONC 32.2 g/dL (32.0-36.0); MEAN CORPUSCULAR VOLUME 80 fl (80-97); RED BLOOD COUNT 3.38 10^6/uL (3.72-5.28); RED CELL DISTRIBUTION WIDTH 18.5 % (11.5-14.0); WHITE BLOOD COUNT 12.3 10^3/uL (4.0-10.5)
[2017-03-11 07:39] LABS: ANION GAP 14 (5-19); BLOOD UREA NITROGEN 13 mg/dL (7-20); CALCIUM 8.6 mg/dL (8.4-10.2); CARBON DIOXIDE 30 mmol/L (22-30); CHLORIDE 93 mmol/L (98-107); CREATININE RESULT 0.44 mg/dL (0.52-1.25); GLUCOSE 100 mg/dL (75-110); SODIUM 136.6 mmol/L (137-145)
[2017-03-11] MEDS ORDERED: ENOXAPARIN SODIUM INJ 40 MG/0.4 ML DISP.SYRIN SUBCUT SCH (08:00)
[2017-03-11 08:21] LABS: ANISOCYTOSIS 2+; BASOPHILS % (MANUAL) 0 % (0-2); EOSINOPHILS % (MANUAL) 0 % (0-6); HYPOCHROMASIA 1+; LYMPHOCYTES % (MANUAL) 5 % (13-45); OVALOCYTES SLIGHT; POIKILOCYTOSIS SLIGHT; POLYCHROMASIA SLIGHT; TOTAL CELLS COUNTED 100; TOXIC GRANULATION SLIGHT
[2017-03-11] MEDS ORDERED: HEPARIN SOD (PORCINE) 1,000 UNIT/ML 10 ML VIAL ONE (09:28)
[2017-03-11] MEDS: FLUCONAZOLE 100 MG TABLET PO SCH (09:33)
[2017-03-11] MEDS: MEGESTROL ACETATE 20 MG TABLET PO SCH ×2 (09:33→21:31)
[2017-03-11] MEDS: LEVOFLOXACIN 750 MG/D5W RTU 150 ML IV SCH (09:34)
[2017-03-11] MEDS: SERTRALINE HCL 50 MG TABLET PO SCH (09:34)
--- NOTE | 2017-03-11 11:34 | PDOC CONSULTATION ---
Consultation Consult Date: 03/11/17 History of Present Illness Admission Date/PCP: 03/10/17 16:39 History of Present Illness: IRIS TAYLOR is a 61 year old female with a past medical history significant for COPD and rececently diagnosed Stage IIIB non-small cell lung cancer undergoing combined modality therapy status post chemotherapy with TC last week, XRT due to be completed today, recently diagnosed UTI and the rash who presents to the ED with acute shortness of breath. Patient had been in her usual state of health until around 1:00 this afternoon when she developed shortness of breath. She presented to the emergency room where she was found to be short of breath with a low O2 sat. Oxygen by nasal cannula which brought her sats up to 93%. She had a chest x-ray done in the emergency room which showed a liliane out right lung with a large pleural effusion which is larger than before. She had begun having lower extremity swelling about 2 weeks ago and was advised to have a Duplex Doppler but all the tests and appointments have been overwhelming and she did not follow up with one. This was just prior to starting her chemotherapy. She is on Lasix at home 20 mg by mouth daily only on a prn basis. The patient is a known smoker and continues to smoke. She is now down to 2 cigarettes a day. White count in the ED was noted to be 11. CTA revealed a nonocclusive PE, large right pleural effusion and pericardial effusion appeared larger. She actually looks better in person and is not having any tamponade physiology but just completed her ECHO. Past Medical History Cardiac Medical History: Denies: Congestive Heart Failure, Coronary Artery Disease, Myocardial Infarction, Hypertension Pulmonary Medical History: Denies: Asthma, Bronchitis, Chronic Obstructive Pulmonary Disease (COPD) - TROUBLE BREATHING/FLUID IN LUNGS, Pneumonia Neurological Medical History: Denies: Seizures GI Medical History: Reports: Gastroesophageal Reflux Disease Musculoskeltal Medical History: Denies: Arthritis Psychiatric Medical History: Reports: Depression Hematology: Denies: Anemia Past Surgical History Past Surgical History: Reports: Hysterectomy, Tonsillectomy Social History Smoking Status: Current Some Day Smoker Number of Years Smokin Frequency of Alcohol Use: None Hx Recreational Drug Use: No Drugs: None Hx Prescription Drug Abuse: No - Advance Directive Resuscitation Status: Full Code Family History Family History: CAD - Father had massive SC at age 55, DM, Malignancy Parental Family History Reviewed: Yes Children Family History Reviewed: Yes Sibling(s) Family History Reviewed.: Yes Medication/Allergy Home Medications: Albuterol Sulfate [Proair HFA] 2 puff IH Q4HP PRN 03/10/17 Ciprofloxacin HCl [Cipro 500 mg Tablet] 500 mg PO Q12 03/10/17 Cpd-Lido/Antacid/Diphen 10 ml PO ACHS 03/10/17 Dexamethasone [Decadron 4 mg Tablet] 20 mg PO BIDP PRN 03/10/17 Fluconazole [Diflucan 100 mg Tablet] 100 mg PO DAILY 03/10/17 Furosemide [Lasix] 20 mg PO DAILY 03/10/17 Hydrocodone/Acetaminophen [[place] 5-325 mg Tablet] 1 tab PO Q4HP PRN 03/10/17 Hydrocodone/Chlorphen P-Stirex [Hydrocodone-Chlorphen ER Susp] 5 ml PO BID 03/10 Ipratropium/Albuterol Sulfate [Duoneb 3 ml Ampul] 1 vial NEB RTQ6HP PRN Lorazepam [Ativan 0.5 mg Tablet] 0.5 mg PO Q6HP PRN 03/10/17 Megestrol Acetate 20 mg PO Q12 03/10/17 Sertraline HCl [Zoloft 50 mg Tablet] 50 mg PO DAILY 03/10/17 Allergies/Adverse Reactions: codeine Allergy (Mild, Verified 03/01/17 10:06) Change in behavior latex Allergy (Mild, Verified 03/01/17 10:06) Eczematous dermatitis Review of Systems Constitutional: PRESENT: as per HPI Nose, Mouth, and Throat: PRESENT: mouth pain Physical Exam Vital Signs: Temp Pulse Resp BP Pulse Ox 98.4 F 117 H 22 H 144/84 H 94 03/11/17 07:47 03/11/17 08:56 03/11/17 08:56 03/11/17 07:47 03/11/17 08:56 Intake & Output 03/10/17 03/11/17 03/12/17 06:59 06:59 06:59 Intake Total 775 Output Total 600 Balance 175 Weight 49.4 kg Head exam: PRESENT: normocephalic Eye exam: PRESENT: EOMI Mouth exam: PRESENT: dry mucosa, other - candidiasis Respiratory exam: PRESENT: decreased breath sounds - on the right with some accessory use Cardiovascular exam: PRESENT: tachycardia GI/Abdominal exam: PRESENT: soft Neurological exam: PRESENT: oriented to person, oriented to place, oriented to time, oriented to situation, CN II-XII grossly intact Results Laboratory Results: 03/11/17 06:19 03/11/17 06:19 03/10/17 03/11/17 03/11/17 22:05 05:50 06:19 WBC 11.1 H 12.3 H RBC 3.60 L 3.38 L Hgb 9.3 L 8.7 L Hct 28.8 L 27.0 L MCV 80 80 MCH 25.7 L 25.7 L MCHC 32.1 32.2 RDW 19.0 H 18.5 H Plt Count 260 278 Seg Neutrophils % Not Reportable Lymphocytes % Not Reportable Monocytes % Not Reportable Eosinophils % Not Reportable Basophils % Not Reportable Absolute Neutrophils Not Reportable Absolute Lymphocytes Not Reportable Absolute Monocytes Not Reportable Absolute Eosinophils Not Reportable Absolute Basophils Not Reportable Sodium Potassium Chloride Carbon Dioxide Anion Gap BUN Creatinine Est GFR ( Amer) Est GFR (Non-Af Amer) Glucose Calcium Magnesium Urine Color YELLOW Urine Appearance SLIGHTLY-CLOUDY Urine pH 6.0 Ur Specific [place] 1.032 Urine Protein NEGATIVE Urine Glucose (UA) 50 H Urine Ketones NEGATIVE Urine Blood NEGATIVE Urine Nitrite NEGATIVE Ur Leukocyte Esterase TRACE H Urine WBC (Auto) 2 Urine RBC (Auto) 1 03/11/17 06:19 WBC RBC Hgb Hct MCV MCH MCHC RDW Plt Count Seg Neutrophils % Lymphocytes % Monocytes % Eosinophils % Basophils % Absolute Neutrophils Absolute Lymphocytes Absolute Monocytes Absolute Eosinophils Absolute Basophils Sodium 136.6 L Potassium 4.0 Chloride 93 L Carbon Dioxide 30 Anion Gap 14 BUN 13 Creatinine 0.44 L Est GFR ( Amer) > 60 Est GFR (Non-Af Amer) > 60 Glucose 100 Calcium 8.6 Magnesium 2.0 Urine Color Urine Appearance Urine pH Ur Specific [place] Urine Protein Urine Glucose (UA) Urine Ketones Urine Blood Urine Nitrite Ur Leukocyte Esterase Urine WBC (Auto) Urine RBC (Auto) Impressions: Chest/Abdomen CTA 03/10/17 00:00 IMPRESSION: 1. There is limited thrombus in a lower lobe pulmonary artery as described. 2. By history there is a tumor in the right upper lobe. This is not evident because of the presence of a very large pleural effusion and atelectasis that is very extensive in the right upper lobe and lower lobe. 3. There is a large pericardial effusion. Chest X-Ray 03/11/17 08:00 IMPRESSION: Near complete collapse of the right lung with moderate pleural effusion similar compared to studies from 03/10/2017. Assessment & Plan - Diagnosis (1) Non-small cell cancer of right lung Plan: Completing her XRT and counts from her weekly TC but given concern for malignant effusion and complications have discussed with Dr. Saucedo and hospitalist transferring for possible pericardiocentesis and right thoracentesis with Pleurx catheter. Discussed with patient and her family as well. (2) Pleural effusion Plan: Thoracentesis with possible pleurx catheter placement (3) Acute respiratory failure with hypoxemia Is this a current diagnosis for this admission?: YesPlan: O2 and NC at present and treat her underlying PE with IV heparin until effusions treated. (4) Thrush, oral Is this a current diagnosis for this admission?: YesPlan: Treat with Diflucan - Time Critical Time spent with patient: 25-34 minutes Medications reviewed and adjusted accordingly: Yes Anticipated discharge: [facility]
--- NOTE | 2017-03-11 13:17 | XCELERA REPORT ---
[address] [address] Transthoracic Echocardiogram Report Name: IRIS TAYLOR Age: 61 yrs Gender: Female : 1955 Patient Status: Inpatient Patient Location: 3S\S\329\S\A Study Date: 03/11/2017 07:39 AM Height: 63 in Weight: 103 lb BSA: 1.5 m2 Procedure: A two-dimensional transthoracic echocardiogram with color flow and Doppler was performed. The study was technically adequate with some images being suboptimal in quality. Reason For Study: PLEURAL AND PERICARDIAL EFFUSION. History: PLEURAL AND PERICARDIAL EFFUSION. Ordering Physician: MARITZA JHAVERI Performed By: Osman Guerrero Interpretation Summary The left ventricle is normal in size. There is normal left ventricular wall thickness. LV EF is > THAN 65% Left ventricular systolic function is normal. Doppler measurements suggest normal left ventricular diastolic function The left ventricular wall motion is normal. There is no thrombus. The right ventricle is normal in size and function. The right atrium is normal. The left atrial size is normal. The interatrial septum is intact with no evidence for an atrial septal defect. There is no evidence of mitral valve prolapse. There is no vegetation seen on the mitral valve. There is no mitral valve stenosis. There is a trace amount of mitral regurgitation There is no aortic valve stenosis There is no LVOT obstruction. No aortic regurgitation is present. There is no tricuspid stenosis. There is a mild amount of tricuspid regurgitation Right ventricular systolic pressure is normal. RVSP is 24 mm of Hg , with RA mean of 10. There is no pulmonic valvular stenosis. There is a mild amount of pulmonic regurgitation The aortic root is normal size. Moderate pericardial effusion. The pericardial effusion is slightly more on the right side than the left.The pericardium is thickened and some areaas off pericardium eith fluffy stuff sugestive of pericardial Metastasis. There are no echocardiographic or Doppler indications for cardiac tamponade MMode/2D Measurements \T\ Calculations RVDd: 2.3 cm LVIDd: 4.0 cm FS: 41.7 % Ao root diam: 2.8 cm IVSd: 0.83 cm LVIDs: 2.3 cm EDV(Teich): 68.3 ml LVPWd: 0.79 cm ESV(Teich): 18.3 ml Ao root area: 6.3 cm2 EF(Teich): 73.2 % LA dimension: 3.0 cm Doppler Measurements \T\ Calculations MV E max alem: MV P1/2t max alem: Ao V2 max: LV V1 max P.8 cm/sec 75.3 cm/sec 120.1 cm/sec 4.2 mmHg MV A max alem: MV P1/2t: 43.8 msec Ao max PG: LV V1 max: 71.4 cm/sec 5.8 mmHg 102.5 cm/sec MV E/A: 1.1 MVA(P1/2t): 5.0 cm2 MV dec slope: 503.6 cm/sec2 PA V2 max: PI end-d alem: TR max alem: RAP systole: 80.5 cm/sec 118.3 cm/sec 186.4 cm/sec 10.0 mmHg PA max PG: TR max P.6 mmHg 14.0 mmHg RVSP(TR): 24.0 mmHg Left Ventricle The left ventricle is normal in size. There is normal left ventricular wall thickness. LV EF is > THAN 65%. Left ventricular systolic function is normal. Doppler measurements suggest normal left ventricular diastolic function. The left ventricular wall motion is normal. There is no thrombus. There is no ventricular septal defect visualized. Right Ventricle The right ventricle is normal in size and function. Atria The right atrium is normal. The left atrial size is normal. The interatrial septum is intact with no evidence for an atrial septal defect. Mitral Valve There is no evidence of mitral valve prolapse. There is no vegetation seen on the mitral valve. There is no mitral valve stenosis. There is a trace amount of mitral regurgitation. Aortic Valve The aortic valve is trileaflet. The aortic valve opens well. There is no aortic valvular vegetation. There is no aortic valve stenosis. There is no LVOT obstruction. No aortic regurgitation is present. Tricuspid Valve There is no tricuspid stenosis. There is a mild amount of tricuspid regurgitation. Right ventricular systolic pressure is normal. RVSP is 24 mm of Hg , with RA mean of 10. Pulmonic Valve There is no pulmonic valvular stenosis. There is a mild amount of pulmonic regurgitation. Great Vessels The aortic root is normal size. Effusions Moderate pericardial effusion. There are no echocardiographic or Doppler indications for cardiac tamponade. The pericardial effusion is slightly more on the right side than the left.The pericardium is thickened and some areaas off pericardium eith fluffy stuff sugestive of pericardial Metastasis. : MARITZA JHAVERI > Yamile Medina
[2017-03-11] MEDS ORDERED: FUROSEMIDE INJ/PF 20 MG/2 ML SDV IV ONE (13:22)
--- NOTE | 2017-03-11 13:37 | PDOC DISCHARGE SUMMARY ---
General - Admit/Disc Date/PCP Admission Date/Primary Care Provider: 03/10/17 16:39 Discharge Date: 03/11/17 - Discharge Diagnosis (1) Acute respiratory failure with hypoxemia Is this a current diagnosis for this admission?: YesSummary: Patient is breathing much better on nasal cannula. She is off bilevel Pap. 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 She also has underlying COPD from smoking. And continues to smoke 2 cigarettes per day. Continue oxygen therapy for the purposes of transport. Patient will need thoracentesis which we have planned to do here but can now be done in [place] along with possible fausto- cardiocentesis (2) Pneumonia Summary: Concern for postobstructive process. Patient will need thoracentesis and analysis. (3) UTI (urinary tract infection) Summary: Diagnoses an outpatient. No cultures available in-house. The patient was on Cipro at home. She has been receiving Levaquin here. To cover for this as well as presumed pneumonia in the chest. (4) Thrush, oral Is this a current diagnosis for this admission?: YesSummary: Continue home Diflucan. (5) Hypertensive urgency Summary: Much improved. I believe much of this was due to anxiety and difficulty breathing. (6) Edema Summary: Much improved today with the dose of Lasix. Will repeat 1 now. (7) Malnutrition Summary: Moderate protein calorie malnutrition. This is secondary to decreased by mouth and decreased appetite from underlying cancer. (8) Pleural effusion Summary: Patient with a right-sided pleural effusion. Plan was for a thoracentesis chest tube placement. This has been deferred secondary to need for transfer to have pericardial effusion managed first. (9) Tobacco abuse Summary: Cessation is advised. (10) Pulmonary embolus Summary: Patient was started on heparin drip. Her PE is a direct consequence of her underlying cancer. (11) Pericardial effusion Summary: Patient being transferred to [place] secondary to large pericardial effusion. Should the should become unstable access to CT surgery. This is not a service we can provide here. - Additional Information Resuscitation Status: Full Code Home Medications: Albuterol Sulfate [Proair HFA] 2 puff IH Q4HP PRN 03/10/17 Ciprofloxacin HCl [Cipro 500 mg Tablet] 500 mg PO Q12 03/10/17 Cpd-Lido/Antacid/Diphen 10 ml PO ACHS 03/10/17 Dexamethasone [Decadron 4 mg Tablet] 20 mg PO BIDP PRN 03/10/17 Fluconazole [Diflucan 100 mg Tablet] 100 mg PO DAILY 03/10/17 Furosemide [Lasix] 20 mg PO DAILY 03/10/17 Hydrocodone/Acetaminophen [[place] 5-325 mg Tablet] 1 tab PO Q4HP PRN 03/10/17 Hydrocodone/Chlorphen P-Stirex [Hydrocodone-Chlorphen ER Susp] 5 ml PO BID 03/10 Ipratropium/Albuterol Sulfate [Duoneb 3 ml Ampul] 1 vial NEB RTQ6HP PRN Lorazepam [Ativan 0.5 mg Tablet] 0.5 mg PO Q6HP PRN 03/10/17 Megestrol Acetate 20 mg PO Q12 03/10/17 Sertraline HCl [Zoloft 50 mg Tablet] 50 mg PO DAILY 03/10/17 History of Present Illness History of Present Illness: IRIS TAYLOR is a 61 year old female with a past medical history significant for non-small cell lung cancer diagnosed 1 month ago status post chemotherapy last week, XRT due to be completed today, recently diagnosed UTI and the rash who presents to the service with acute shortness of breath. Patient had been in her usual state of health until around 1:00 this afternoon when she developed shortness of breath. Her primary oncologist is Dr. Storey. Which came into the emergency room she was found to be short of breath with a low O2 sat. Liters of oxygen by nasal cannula which brought her sats up to 93% . She had a chest x-ray done in the emergency room which showed a liliane out right lung with pleural effusion. Patient at this point has not been started on any antibiotics or Lasix. Reportedly she began having lower extremity swelling about 2 weeks ago. This was just prior to starting her chemotherapy. She is on Lasix at home 20 mg by mouth daily. The patient is a known smoker and continues to smoke. She is now down to 2 cigarettes a day. White count in the ED was noted to be 11. No Lasix has been giving as of yet. No steroids have been given. Unfortunately, by the time I came to see the patient she was placed on bilevel Pap. She tells me that she feels much better having this on. Hospital Course Hospital Course: Overnight the patient did well. She was able to come off of bilevel Pap. This morning at the bedside she seems quite nervous. We have given her a lot of information about test results from her CT scan and need for transfer over to [place]. CT scan of the chest did show PE. Swells large right pleural effusion and large pericardial effusion. Echocardiogram was done and was reviewed by our in-house emulsion operator. There is some concern that her pericardial effusion could increase. If this should happen patient would need emergent pericardiocentesis and access to CT surgeon. Plans initially were to do thoracentesis with chest tube placement. However with her being transferred we have elected to wait and allow her to undergo this in [place]. The patient is agreeable to this. Dr. Saucedo has made arrangements with Dr. White and Dr. Peraza as accepting physicians. The space being prepared in the MICU in [place]. Of note, patient was diagnosed with oral thrush as well as urinary tract infection as an outpatient she came in on both Diflucan and Cipro. She has been changed to Diflucan and Levaquin to cover for any organisms that may be in the lung. On transportation she should be maintained on fluids as well as oxygen. Physical Exam Vital Signs: Temp Pulse Resp BP Pulse Ox 99.1 F 108 H 22 H 144/84 H 93 03/11/17 11:12 03/11/17 12:14 03/11/17 12:14 03/11/17 11:12 03/11/17 12:14 Intake & Output 03/10/17 03/11/17 03/12/17 06:59 06:59 06:59 Intake Total 775 540 Output Total 600 300 Balance 175 240 Weight 49.4 kg Physical exam: Gen.: This is a well-developed underweight chronically ill-appearing white female resting in bed on oxygen appearing quite nervous. HEENT: Normocephalic atraumatic. Trachea is midline. Sclerae are not icteric. No lymphadenopathy. Heart: Tachycardic. No murmurs rubs or gallops. Lungs: Diminished at the bases bilaterally with equal rise and fall of the chest. She is currently resting on nasal cannula oxygen Abdomen: Soft nontender nondistended. Active bowel sounds. Extremities: No clubbing cyanosis. Trace to 1+ pitting edema extending from the feet following up through the guallpa bilaterally. Lower extremity pulses 2+. 2+ radial pulses bilaterally. Neuro: Awake alert oriented. Cranial nerves II through XII are grossly intact. Psych: Patient seems nervous. Results Laboratory Results: 03/11/17 06:19 03/11/17 06:19 03/10/17 03/11/17 03/11/17 22:05 05:50 06:19 WBC 11.1 H 12.3 H RBC 3.60 L 3.38 L Hgb 9.3 L 8.7 L Hct 28.8 L 27.0 L MCV 80 80 MCH 25.7 L 25.7 L MCHC 32.1 32.2 RDW 19.0 H 18.5 H Plt Count 260 278 Seg Neutrophils % Not Reportable Lymphocytes % Not Reportable Monocytes % Not Reportable Eosinophils % Not Reportable Basophils % Not Reportable Absolute Neutrophils Not Reportable Absolute Lymphocytes Not Reportable Absolute Monocytes Not Reportable Absolute Eosinophils Not Reportable Absolute Basophils Not Reportable Sodium Potassium Chloride Carbon Dioxide Anion Gap BUN Creatinine Est GFR ( Amer) Est GFR (Non-Af Amer) Glucose Calcium Magnesium Urine Color YELLOW Urine Appearance SLIGHTLY-CLOUDY Urine pH 6.0 Ur Specific [place] 1.032 Urine Protein NEGATIVE Urine Glucose (UA) 50 H Urine Ketones NEGATIVE Urine Blood NEGATIVE Urine Nitrite NEGATIVE Ur Leukocyte Esterase TRACE H Urine WBC (Auto) 2 Urine RBC (Auto) 1 03/11/17 06:19 WBC RBC Hgb Hct MCV MCH MCHC RDW Plt Count Seg Neutrophils % Lymphocytes % Monocytes % Eosinophils % Basophils % Absolute Neutrophils Absolute Lymphocytes Absolute Monocytes Absolute Eosinophils Absolute Basophils Sodium 136.6 L Potassium 4.0 Chloride 93 L Carbon Dioxide 30 Anion Gap 14 BUN 13 Creatinine 0.44 L Est GFR ( Amer) > 60 Est GFR (Non-Af Amer) > 60 Glucose 100 Calcium 8.6 Magnesium 2.0 Urine Color Urine Appearance Urine pH Ur Specific [place] Urine Protein Urine Glucose (UA) Urine Ketones Urine Blood Urine Nitrite Ur Leukocyte Esterase Urine WBC (Auto) Urine RBC (Auto) 03/11/17 05:50 Sputum Gram Stain - Final Impressions: Chest/Abdomen CTA 03/10/17 00:00 IMPRESSION: 1. There is limited thrombus in a lower lobe pulmonary artery as described. 2. By history there is a tumor in the right upper lobe. This is not evident because of the presence of a very large pleural effusion and atelectasis that is very extensive in the right upper lobe and lower lobe. 3. There is a large pericardial effusion. Chest X-Ray 03/11/17 08:00 IMPRESSION: Near complete collapse of the right lung with moderate pleural effusion similar compared to studies from 03/10/2017. Qualifiers PATEINT BEING DISCHARGED WITH ANY OF THE FOLLOWING DIAGNOSIS?: No Plan Time Spent: Greater than 30 Minutes
[2017-03-11] MEDS ORDERED: FUROSEMIDE INJ/PF 40 MG/4 ML SDV IV ONE (13:45)
[2017-03-11] MEDS ORDERED: LORAZEPAM INJ 2 MG/1 ML VIAL IV ONE (15:30)
--- NOTE | 2017-03-11 17:38 | CONSULTATION REPORT E ---
Consultation Report NAME: IRIS TAYLOR : 1955 AGE: 61Y DATE: 03/11/2017 329 A TO: SCOTT DE LUNA M.D. FROM: BARRINGTON SALAZAR M.D. Requesting Physician REASON FOR CONSULTATION: Need for pericardiocentesis in a patient with large pericardial effusion as per CTA of the chest. 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 The patient was supposed to go for radiation therapy. She states that since discharge she has been having intermittent episodes of wheezing and cough and shortness of breath. Yesterday, 03/10/2017, the patient was getting ready to go for radiation treatment when the patient had sudden onset of shortness of breath with some wheezing and cough productive of whitish sputum. There was no hemoptysis. There was no chest pain or discomfort. The patient's daughter stated that the patient dialed up her oxygen but still was very short of breath and came to the emergency room where 02 saturation was 75% and the patient subsequently was placed on BIPAP and also later got Xopenex treatments, steroids and antibiotics and is now much improved. Her head CT did not show any metastasis since the patient had some drowsiness on admission. Her CTA of the chest showed a small thrombus in one of the lower lobe pulmonary arteries. There was also a large right pleural effusion with atelectasis/collapse of the right upper lobe and right lower lobe with only a small amount of lung on the right side; the left side was clear. She also by CTA was noted to have a large pericardial effusion. The patient denies any fever, chills or rigors. There are no palpitations. No chest pain or discomfort. She has orthopnea. Over 2 weeks ago she started having swelling of her legs but when they gave her Lasix, now it has gone down. There are no TIA or CVA symptoms. There is no syncope. The patient has no PND. Although in the past she has no history of hypertension, she was slightly hypertensive when she came in. This may be due to respiratory distress and comorbid medical conditions. PAST MEDICAL HISTORY: Positive for COPD, diagnosed with non-small cell carcinoma of the lung 1 month ago, stage IIIB, status post chemotherapy. The patient was to have radiation therapy. She has no history of hypertension, no history of diabetes mellitus, no history of thyroid disease, no history of sleep apnea. She has a history of COPD. There is no past history of pulmonary embolism, hemoptysis or pleuritic chest pain. She has no history of TIA or CVA. There is no history of anxiety and depression. There is no prior history of coronary artery disease, OH or anginal symptoms. There is no prior history of congestive heart failure. ALLERGIES: 1. CODEINE. 2. LATEX. MEDICATIONS: 1. Tylenol 650 mg p.o. q.4 h. p.r.n. 2. Dexamethasone 20 mg p.o. t.i.d. p.r.n. 3. Diflucan 100 mg p.o. daily. 4. She received Lasix a total of 20 mg IV plus 40 mg IV this morning, so a total of 100 mg in divided doses. 5. She got a bolus of heparin since there was pulmonary embolism in one of the lower lobe arteries. After a bolus she is on a continuous heparin drip monitored by PTT. 6. She is also on Levaquin 7509 mg IV daily. 7. She is on normal saline continuous at 50 mL/hr. 8. Initially she was on ipratropium which has subsequently changed to Xopenex due to tachycardia. She is on Xopenex 0.63 mg nebulizer treatment q.4 h. 9. She is on Lorazepam 0.5 mg p.o. q.6 h. p.r.n. 10. She is on megestrol 20 mg p.o. q.12 h. for decreased appetite. 11. She is on oxycodone 1 tablet p.o. q.6 h. p.r.n. 12. She is on prednisone 60 mg p.o. x1. 13. She is on sertraline 50 mg p.o. daily. Although the patient denies a history of depression, she looks depressed. FAMILY HISTORY: Positive for massive OH in father at age 55, diabetes mellitus and *------*. PAST SURGICAL HISTORY: Positive for hysterectomy and tonsillectomy. SOCIAL HISTORY: The patient is a smoker. There is no history of EtOH abuse. CODE STATUS: The patient is a FULL CODE. Her is the surrogate healthcare decision maker. REVIEW OF SYMPTOMS: CONSTITUTIONAL: Complains of generalized fatigue and weakness but no fever, chills or rigors. HEENT: Head, denies any headaches or head injury and no dizziness. Eyes, no history of amblyopia or diplopia. No history of amaurosis fugax. Ears, no history of hearing loss, no tinnitus, no history of recurrent ear infections. Nose, no history of nosebleeds except when she was on oxygen probably secondary to the nasal 02 but there is no history of nasal polyps. Mouth, no history of altered taste sensation, no history of ulcers in the mouth, no history of bleeding from the gums. Throat, no history of odynophagia but occasionally she states she has some dysphagia. There are no recurrent sore throats. SKIN: The patient states that she has a skin rash but I do not see anything now. There is no skin cancer. There is no psoriasis. There is no pleuritis or yellowish discoloration of the skin. NECK: There is no history of goiter. No history of lymphadenopathy. No history of goiter. No history of neck pain. LUNGS: History of stage IIIB non-small cell cancer of the lung status post chemotherapy. The patient now with a large right pleural effusion, also the patient has a small thrombus in one of the lower lobe pulmonary arteries. She has a history of COPD. The patient did have some cough with sputum production which is whitish in color, no hemoptysis. No prior history of pulmonary embolism but at this time the patient has a small PE. She has a large right pleural effusion with atelectasis versus collapse of the right lower lobe and right middle lobe with only a small part of the right lung being seen. The left lung is clear. She has orthopnea. CARDIAC: No history of CAD or anginal symptoms. No history of hypertension although her blood pressure was slightly elevated on admission due to the patient's anxiety and comorbid conditions. No history of prior congestive heart failure but the patient has had leg swelling for the past 2 weeks, which has now resolved with Lasix given in divided IV doses. No history of palpitations. No history of syncope. No history of congestive heart failure. No history of coronary artery disease and no anginal symptoms. GASTROINTESTINAL: History of occasional dysphagia. History of GERD. No history of GI bleed. No history of fatty food intolerance. No history of GERD. No history of altered bowel movements. The patient has been having decreased appetite in spite of Megace in the last week. ENDOCRINE: No history of diabetes mellitus, no history of thyroid disease, no history of polydipsia or polyuria. No history of heat or cold intolerance. No history of hirsutism. No history of excessive sweating. RENAL: No history of chronic kidney disease. Recent symptoms of UTI, seems to have subsided and also patient had some symptoms of cystitis. There is no hematuria. MUSCULOSKELETAL: Denies any arthritis or collagen vascular disease. CRANIAL NERVE SYSTEM: No history of TIA or CVA. No history of seizures. No history of headaches or migraines. No history of gait imbalance. PSYCHIATRIC: Although the patient denied it in the past, she is on antidepressants and has a history of depression and also some degree of anxiety. HEMATOLOGICAL: No history of bleeding diathesis. No history of clotting disorders. VASCULAR: No history of calf or buttock claudication. No history of DVT. PHYSICAL EXAMINATION: GENERAL: Patient at present seems to be having some mild respiratory distress. There is also some usage of mild accessory muscles of respiration. The patient looks very frail built and chronically ill and emaciated and malnourished. VITAL SIGNS: She is afebrile with a temperature of 98.5 degrees Fahrenheit, respirations are 24 per minute, 02 sats are 93% on 5 L nasal cannula, heart rate is 119 beats per minute, sinus tachycardia on the monitor, blood pressure is 139/71. HEENT: Head is atraumatic, normocephalic. Eyes: Pupils are equal, round, regular, reactive to light and accommodation. Extraocular movements are normal. There is no definite conjunctival pallor. There is no scleral icterus. Ears: Tympanic membranes are intact. External auditory canals are clear. Nose: There is no deviated nasal septum. There is no inflammation of the nasal mucous membranes. Mouth: Mucous membranes of the mouth are moist. Tongue is moist. There are no ulcers. There is no bleeding from the gums. Throat: There is no redness of the oropharynx. There are no exudates in the throat. SKIN: There are no skin rashes at present. There is no petechia or ecchymosis. There are no skin lesions. NECK: Supple. There is no JVD. Carotids are equal. There is no bruit. There is no goiter. Trachea is central. There is mild usage of accessory muscles of respiration. LUNGS: Trachea is deviated slightly to the left. There is dullness throughout the right side. There is harsh breathing on the left side. At present there is no wheezing. There are no rales of CHF. There are no rhonchi on the left side. There is dullness on the right side. The left lung shows hyperresonance and shows prolonged expiration with harsh respirations. HEART: S1 and S2 are heard. There is no S3 gallop. There is no S4 gallop. There is a systolic murmur in the left sternal border and the apex without any radiation. There is no rub. There is no pulsus paradoxus on examination of her blood pressure. ABDOMEN: Soft, nontender. There is no hepatosplenomegaly. Bowel sounds are well heard. There are no tender areas or masses. There is no rebound, guarding or rigidity. EXTREMITIES: Femorals are slightly diminished. There are no femoral bruits. Leg pulses are well felt. There is no pedal edema at present. There is no DVT or cellulitis. There is no calf tenderness. CENTRAL NERVOUS SYSTEM: The patient is conscious, awake, alert, oriented x3 with no focal deficits. PSYCHIATRIC: The patient appears to be anxious or depressed, but the patient does not appear to be agitated. DIAGNOSTIC TEST RESULTS: The patient's sodium is 136.6, potassium is 4.0, chloride 93, CO2 is 30. The patient's BUN is 13, creatinine 0.44, GFR is greater than 60, glucose is 100, calcium is 8.6, magnesium is 2.0. NT-proBNP is negative at 506. The patient's total protein yesterday was 6.1, albumin was 3.0. The patient is on continuous IV heparin. The PTT is 46.2. Yesterday her pro time was 16.2, INR was 1.25, PTT was 34.7. The patient's white count is 12,300, hemoglobin is 8.7, hematocrit is 27, and the patient's platelet count is 278,000. The patient's EKG shows sinus tachycardia, baseline artifact, cannot exclude nonspecific T-wave abnormalities in inferior leads. There is no electrical alternans. The patient's chest/abdomen CTA done yesterday, as mentioned earlier, shows there are limited prominences of the lower lobe pulmonary artery as describe. By history there is a tumor in the right upper lobe. This is not evident because of the appearance of a very large pleural effusion and atelectasis that is very extensive in the right upper lobe and right lower lobe. There is a large pericardial effusion. On a chest x-ray done today, the left lung is well insufflated and clear. On the right side a small amount of lung is present in the mid hemithorax, likely the superior segment of the lower lobe. On the left side the lung is grossly clear, no pleural effusion, no pneumothorax. On the right, there is a moderate right-sided pleural effusion with complete collapse of the right upper lobe and right middle lobe. Mild cardiomegaly, underlying pericardial effusion could not be excluded. No evidence of heart failure. There is a right hilar mass and mediastinal adenopathy seen on PET scan, difficult to appreciate by today's plain films. The patient's echocardiogram shows the left ventricle is normal in size. There is normal left ventricular wall thickness. The LV ejection fraction is greater than 65%. The left ventricular systolic function is normal. Doppler measurements suggest normal left ventricular diastolic function. Left ventricular wall motion is normal. There is no thrombus. The right ventricle is normal in size and function. The right atrium is normal. The left atrial size is normal. The intraatrial septum is intact with no evidence of atrial septal defect. There is no evidence of mitral valve prolapse. There is no vegetation seen on the mitral valve. There is no mitral valve stenosis. There is trace amount of mitral regurgitation. There is no aortic valve stenosis. There is no LVOT obstruction. No aortic regurgitation present. There is no tricuspid stenosis. There is mild amount of TR. Right ventricular systolic pressure is normal. The RVSP is 24 mmHg with a right atrial mean pressure of 10. There is no pulmonic valvular stenosis. There is a mild amount of pulmonary regurgitation. The aortic root is normal. There is a moderate pericardial effusion with effusion being slightly more on the right side compared to the left. The pericardium is thickened and in some areas of the pericardium there is fluffy stuff of pericardial metastasis. There is no echocardiographic or Doppler indication for cardiac tamponade. IMPRESSION: 1. Large right pleural effusion with atelectasis versus collapse of the right upper lobe and right lower lobe. 2. Moderate pericardial effusion with no echo or clinical signs of tamponade but note that the patient is on heparin which could aggravate or increase the pericardial effusion if indeed the pericardial effusion is metastatic. My feeling is that this is metastatic. 3. Atelectasis/collapse of the right upper lobe and right lower lobe. 4. Small pulmonary emboli in one lower lobe pulmonary artery. The patient is on IV heparin full dose. 5. Non-small cell carcinoma of the right upper lobe status post chemotherapy. Most likely there is recurrence of this with a large right pleural effusion and also suspected metastasis to the pericardium. 6. COPD. The patient is on anti-COPD medication and also the patient is on antibiotics intravenously. 7. Tobacco abuse disorder. The patient given tobacco cessation counseling. 8. High blood pressure on admission due to anxiety and comorbid conditions. 9. GERD. 10. Recent UTI and rash. RECOMMENDATIONS: 1. Obviously the patient needs the right pleural effusion removed by thoracentesis and most likely the patient needs a right PleurX catheter. At present with the pericardial effusion, there is no clinical evidence for need for a pericardiocentesis but with the patient being on heparin for her pulmonary emboli, even though it is small, if the patient is not on heparin, this small pulmonary emboli could propagate and cause a major problem; but, with this full dose IV heparin and this high suspicion of pericardial mets, there is a chance with this IV heparin, pericardial effusion can increase. Hence, would strongly recommend that the patient be transferred to a tertiary care center for continued therapy with heparin and watch on the size of the pericardial effusion with regards to increase in size or development of tamponade. Obviously also in that place the patient will be having a pleurocentesis and also placement of PleurX catheter. 2. Continue nasal O2. 3. Continue IV antibiotics. 4. Continue the patient on antidepressants and p.r.n. antianxiety agents. 5. Continue this patient on respiratory treatments. 6. My feeling is that the patient should be transferred to a tertiary care center where the patient will be better served, since if the patient should develop tamponade, there is no one to do a pericardiocentesis. 7. This was discussed with the patient and the patient's family and with their permission and also after discussions with the attending physician on the case, I called up [facility] research assistant member, and Dr. Peraza called me back and I explained the history of the patient to him and the clinical findings and my fear of the pericardial effusion increasing with the patient being on IV heparin. He has agreed and he has accepted the patient. At least 20 minutes spent on these discussions with Dr. Peraza. Also I came back to discuss with the family. The echo was also discussed with the patient and the patient's family. Note: One hour spent on this patient with more than 50% of the time spent on direct patient care and also reviewing the patient's medications. At present will not treat the patient's tachycardia in view of the patient's pericardial effusion and pulmonary effusion which might drop the patient's blood pressure if beta-sabrina or calcium channel blockers are used. Note: The medical decision making was of high complexity. All questions of the family answered. We are awaiting a bed from [facility] for the patient to be transferred. Thanking you for allowing me to participate in the care of this patient. DICTATING PHYSICIAN: SCOTT DE LUNA M.D. [id number] PHY#: [id number] ID: [id number] JOB#: [id number] ACCT: [id number] cc:SCOTT DE LUNA M.D. >
[2017-03-11] MEDS: HEPARIN SODIUM,PORCINE/D5W 25,000 UNIT/250 ML RTUINJ IV PRN (23:05)
[2017-03-12] MEDS: LEVALBUTEROL HCL NEB 0.63 MG/3 ML AMPUL NEB SCH ×5 (04:28→20:48)
[2017-03-12] MEDS: SERTRALINE HCL 50 MG TABLET PO SCH (09:19)
[2017-03-12] MEDS: MEGESTROL ACETATE 20 MG TABLET PO SCH ×2 (09:19→22:05)
[2017-03-12] MEDS: LEVOFLOXACIN 750 MG/D5W RTU 150 ML IV SCH (09:19)
[2017-03-12] MEDS: FLUCONAZOLE 100 MG TABLET PO SCH (09:19)
[2017-03-12] MEDS ORDERED: HEPARIN SOD (PORCINE) 1,000 UNIT/ML 10 ML VIAL ONE ×2 (09:37→17:06)
--- NOTE | 2017-03-12 14:24 | PDOC PROGRESS REPORT ---
Subjective Progress Note for:: 03/12/17 Subjective:: This is a follow-up visit for acute respiratory failure. Patient unfortunately has had to go back on bilevel Pap. In my conversation with the nurse the patient might be able to [facility] today. The patient might be having some second thoughts about going to [facility] as per the nursing report. I went in to discuss this with the patient and also to discuss DO NOT RESUSCITATE status as well as comfort care measures. I wanted to ascertain exactly how the patient is feeling at this point and to determine how far she is prepared to go with treatment. 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 Heart: Tachycardic. No murmurs rubs or gallops. Lungs: Diminished at the bases bilaterally with equal rise and fall of the chest. She is currently resting bilevel Pap Abdomen: Soft nontender nondistended. Active bowel sounds. Extremities: No clubbing cyanosis. Trace to 1+ pitting edema extending from the feet following up through the guallpa bilaterally. Lower extremity pulses 2+. 2+ radial pulses bilaterally. Neuro: Awake alert oriented. Cranial nerves II through XII are grossly intact. Psych: Patient seems nervous. Results Laboratory Results: 03/11/17 06:19 03/11/17 06:19 03/11/17 05:50 Sputum Gram Stain - Final 03/11/17 05:50 Sputum Sputum Culture - Final Impressions: Chest/Abdomen CTA 03/10/17 00:00 IMPRESSION: 1. There is limited thrombus in a lower lobe pulmonary artery as described. 2. By history there is a tumor in the right upper lobe. This is not evident because of the presence of a very large pleural effusion and atelectasis that is very extensive in the right upper lobe and lower lobe. 3. There is a large pericardial effusion. Head CT 03/11/17 00:00 IMPRESSION: No acute intracranial finding. Chest X-Ray 03/11/17 08:00 IMPRESSION: Near complete collapse of the right lung with moderate pleural effusion similar compared to studies from 03/10/2017. Assessment & Plan - Diagnosis (1) Acute respiratory failure with hypoxemia Is this a current diagnosis for this admission?: YesPlan: Likely multifactorial due to underlying COPD and lung cancer, pleural effusion, pericardial effusion and PE. Continue bilevel Pap. If the patient has any further decompensation we will have to put in the chest tube here. (2) Pneumonia Qualifiers: Laterality: left Lung location: lower lobe of lung Plan: Patient may have a pneumonia associated with this pleural effusion. Given her underlying cancer could be an obstructive pneumonia. Her white blood cell count is only mildly elevated and could be accounted for by underlying UTI. Right now her respiratory status is so poor that we might have to consider thoracentesis in this case. (3) UTI (urinary tract infection) Qualifiers: Urinary tract infection type: acute cystitis Plan: This was diagnosed as an outpatient. No micro-organism available. She is on outpatient Cipro will continue here in house. (4) Thrush, oral Is this a current diagnosis for this admission?: YesPlan: Continue Diflucan. (5) Hypertensive urgency Plan: Patient does not usually have issues with hypertension. I suspect that her blood pressures are in the 170s because of her comorbid conditions and anxiety. We will have when necessary medications available. (6) Edema Plan: As needed Lasix. (7) Malnutrition Plan: Continue Megace (8) Tobacco abuse Plan: The patient is down to 2 cigarettes per day. Complete cessation is advised. (9) Pleural effusion Plan: Transferral [facility] pending (10) Pericardial effusion Plan: Transfer vitamin for pericardiocentesis pending (11) End of life care Plan: I initially agreed to meet with the patient and her to discuss her current diagnoses and her wishes to pursue continued treatment. I called her oncologist Dr. Marta Storey instead, however. She agreed to come and speak to the patient about her wishes. I will wait to hear the details of that conversation. For now she will remain full code. (12) Non-small cell cancer of right lung Plan: Treatment deferred for now. (13) Pulmonary embolus Plan: Continue heparin drip. - Time Time Spent with patient: 25-34 minutes Anticipated discharge: [facility] - Inpatient Certification Medical Necessity: Need Close Monitoring Due to Risk of Patient Decompensation
[2017-03-12] MEDS: NORMAL SALINE 1000 ML 1,000 ML IV PRN (17:07)
[2017-03-12] MEDS: HEPARIN SODIUM,PORCINE/D5W 25,000 UNIT/250 ML RTUINJ IV PRN (17:09)
--- NOTE | 2017-03-12 17:23 | PDOC PROGRESS REPORT ---
Subjective Progress Note for:: 03/12/17 Subjective:: Worsening shortness of breath overnight and placed on bipap. Concerns for code status given her overall poor PS but the patient and her want everything done at this time after a lengthy discussion. Currently awaiting transfer to [facility] for pericardiocentesis. Physical Exam Vital Signs: Temp Pulse Resp BP Pulse Ox 98.7 F 108 H 26 H 140/85 H 99 03/12/17 15:54 03/12/17 15:54 03/12/17 15:54 03/12/17 15:54 03/12/17 15:54 Intake & Output 03/11/17 03/12/17 03/13/17 06:59 06:59 06:59 Intake Total 775 3025 118 Output Total 600 550 0 Balance 175 2475 118 Weight 49.4 kg 41.9 kg Head exam: PRESENT: atraumatic Mouth exam: PRESENT: other - candidiasis appears better Respiratory exam: PRESENT: decreased breath sounds - on the right,, retraction GI/Abdominal exam: PRESENT: normal bowel sounds Neurological exam: PRESENT: other - pupils are dilated Results Laboratory Results: 03/11/17 06:19 03/11/17 06:19 03/11/17 05:50 Sputum Gram Stain - Final 03/11/17 05:50 Sputum Sputum Culture - Final Impressions: Chest/Abdomen CTA 03/10/17 00:00 IMPRESSION: 1. There is limited thrombus in a lower lobe pulmonary artery as described. 2. By history there is a tumor in the right upper lobe. This is not evident because of the presence of a very large pleural effusion and atelectasis that is very extensive in the right upper lobe and lower lobe. 3. There is a large pericardial effusion. Head CT 03/11/17 00:00 IMPRESSION: No acute intracranial finding. Chest X-Ray 03/11/17 08:00 IMPRESSION: Near complete collapse of the right lung with moderate pleural effusion similar compared to studies from 03/10/2017. Assessment & Plan - Diagnosis (1) Non-small cell cancer of right lung Plan: Discussed with the patient, her and sister her overall poor prognosis but given her age and having just started treatment, they desire to be aggressive. Therefore, we are trying to transfer to a tertiary center for pericardiocentesis and CT placement. If the transfer is delayed then we discussed placing a chest tube here and transferring when a bed is available. The chest tube doesn't eliminate the urgency of the pericardiocentesis but will allow us to alleviate some of her symptoms. (2) Pleural effusion Plan: See above for plan but could add Solumedrol to help open her airways some in case there is a reactive component. (3) Acute respiratory failure with hypoxemia Is this a current diagnosis for this admission?: YesPlan: Pulmonary toilet with bipap, add steroids and cover with PPI, thoracentesis or CT placement (4) Thrush, oral Is this a current diagnosis for this admission?: Yes - Time Time Spent with patient: 35 or more minutes Critical Time spent with patient: 35 or more minutes Medications reviewed and adjusted accordingly: Yes
[2017-03-12 20:16] VITALS: BP 126/82
--- NOTE | 2017-03-12 22:04 | PROGRESS NOTE E ---
Progress Note NAME: IRIS TAYLOR : 1955 AGE: 61Y DATE: 03/12/2017 ROOM: 329 SUBJECTIVE: Note that the patient was seen between 9:40 a.m. and 10:10 a.m. A total of 30 minutes. The patient is still waiting for a bed at [facility]. She earlier was satting at 97% on 5 L but subsequently her saturation went down into the 80s and now the patient is on a BiPAP. The patient has axillary muscles of respiration in use. There is no arrhythmia seen on the monitor. The patient has orthopnea but no PND. She denies any chest pain. The patient appears to be drowsy. There are no TIA or CV symptoms. OBJECTIVE: GENERAL: On examination the patient is ill nourished and chronically ill appearing patient. VITAL SIGNS: She is afebrile with temperature of 98.2 degrees Fahrenheit. Pulse is 113 beats per minute. Respirations 30 per minute on BiPAP with an O2 saturation of 97% with a FiO2 of 35%. Blood pressure is 147/91. HEENT: Head is atraumatic, normocephalic. Eyes: Pupils are equal, round, regular, reactive to light and accommodation. Extraocular movements are normal. Ears are negative. Nose, throat and mouth not examined due to the BiPAP. There are no skin rashes. There is no petechia or ecchymosis. NECK: Supple. There is no JVD. Carotids are equal; there is no bruit. There is no goiter. Trachea is central. There are axillary muscles of respiration in use. LUNGS: Trachea is deviated to the left. There is dullness throughout the right side with absent breath sounds. There is harsh breathing on the left side. There are no rales or CHF. The left lung shows hyperresonance and shows prolonged expiration. CARDIOVASCULAR: S1, S2 are heard. There is no S3 gallop. There is no S4 gallop. There is systolic murmur in the left sternal border and the apex without any radiation. There is no rub. There is no pulsus paradoxus on examination of her blood pressure. ABDOMEN: Soft, nontender. There is no hepatosplenomegaly. Bowel sounds are well heard. There are no tender areas or masses. There is no rebound, guarding or rigidity. EXTREMITIES: Femorals are slightly diminished. There are no femoral bruits. Leg pulses are well felt. There is no pedal edema at present. There is no DVT or cellulitis. There is no calf tenderness. CENTRAL NERVOUS SYSTEM: The patient is conscious, awake, but very drowsy with no focal deficit. PSYCHIATRIC: The patient appears to be drowsy and hence not examined. The patient's 24-hour intake was 3025 mL, output is 550 mL. IMPRESSION: 1. LARGE RIGHT PLEURAL EFFUSION WITH ATELECTASIS VERSUS COLLAPSE OF THE RIGHT UPPER LOBE AND RIGHT MIDDLE LOBE. 2. MODERATE PERICARDIAL EFFUSION WITH NO ECHO OR CLINICAL SIGNS OF TAMPONADE. MOST LIKELY THE PLEURAL EFFUSION AND PERICARDIAL EFFUSION ARE METASTATIC. 3. ATELECTASIS/COLLAPSE OF THE RIGHT UPPER LOBE AND RIGHT LOWER LOBE. 4. SMALL PULMONARY EMBOLI IN ONE LOWER LOBE ARTERY. PATIENT IS ON IV HEPARIN. 5. NON-SMALL CELL CARCINOMA OF THE RIGHT UPPER LOBE STATUS POST CHEMOTHERAPY. MOST LIKELY THIS IS RECURRENCE OF HIS LARGE RIGHT PLEURAL EFFUSION AND ALSO SUSPECTED METASTASIS TO THE PERICARDIUM. 6. COPD. The patient is on anti-COPD medication and on antibiotics. 7. TOBACCO ABUSE DISORDER. 8. HIGH BLOOD PRESSURE MOST LIKELY SECONDARY TO RESPIRATORY DIFFICULTY. 9. GERD. 10. RECENT UTI, AT PRESENT NO RASH. RECOMMENDATIONS: 1. Continue BiPAP and O2. 2. Continue IV antibiotics. 3. Would be careful with the antidepressants in view of the patient's respiratory treatments. 4. Continue the patient on respiratory treatments. 5. Continue monitoring the patient for any degeneration or development of any *------* congestive heart failure. 6. The patient is still awaiting a bed at [facility]. I called them and they said there might be a bed available in the afternoon. Will recheck and make sure. Note 30 minutes spent on the patient with more than 50% of the time spent on direct patient care and also discussions with the patient, patient's family. Also met the and discussed the case with him and discussed the rational transfer to [facility] since she may need a pericardial window along with the right PleurX catheter. Note that this is an extremely sick individual and hence the medical decision making is very complex. Will keep on periodically checking for a bed for the patient. If weather permits, would recommend that the patient be transferred by helicopter or ambulance. This has been discussed with the [facility]. Discussed with the patient's family and also the patient's . DICTATING PHYSICIAN: SCOTT DE LUNA M.D. [id number] ILIR#: [id number] ID: [id number] JOB#: [id number] ACCT: [id number] cc: >
== END 2017-03-12 22:54 | disposition short-term general hospital (02) | DRG 189 ==
LOC: ER 13:58 → UNDOADMIN 16:26 → EH 16:26 → 3S 18:55
PROVIDERS: ADMIT Hospitalist; ATTEND Hospitalist
DX: J96.01 Acute respiratory failure with hypoxia (principal); J18.9 Pneumonia, unspecified organism; I26.99 Other pulmonary embolism without acute cor pulmonale; C34.11 Malignant neoplasm of upper lobe, right bronchus or lung; J91.0 Malignant pleural effusion; I31.3 Pericardial effusion (noninflammatory); J98.11 Atelectasis; E46 Unspecified protein-calorie malnutrition; Z68.1 Body mass index [BMI] 19.9 or less, adult; N39.0 Urinary tract infection, site not specified; B37.0 Candidal stomatitis; I16.0 Hypertensive urgency; J44.9 Chronic obstructive pulmonary disease, unspecified; K59.03 Drug induced constipation; F17.210 Nicotine dependence, cigarettes, uncomplicated; T40.2X5A Adverse effect of other opioids, initial encounter; Y92.009 Unspecified place in unspecified non-institutional (private) residence as the place of occurrence of the external cause; Z75.1 Person awaiting admission to adequate facility elsewhere
CPT/HCPCS: 36415; 70450; 71010; 71020; 71275; 80048; 80053; 81001; 83735; 83880; 85025; 85027; 85610; 85730; 87040; 87205; 93005; 93010; 93306; 94640; 94660; 99291; J1644; J1940; J1956; J2060; J7030; J7512; J7614; J7620